=== PATIENT | female | born 1950 | race Caucasian/White ===

== ENCOUNTER 2024-11-28 13:39 | Outpatient (AMB) | payer MEDICARE, SELFPAY ==
--- NOTE | 2024-11-28 14:30 | HO.SPINEOV ---
Intake Visit Reasons: Low back pain. Intake Note: Ms. Truong is here today c/o low back pain radiating down left leg. MRI done @ [facility] (brought discs). 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 She developed low back pain radiating down her left leg. The symptoms became severe in June where the pain was associated with tingling and numbness. She tried physical therapy, chiropractic therapy, acupuncture and eventually injections. The 2nd injection in the beginning of October of 2024 alleviated the severe pain and tingling and numbness. However, the symptoms remain this a billing. She can not walk for any long distance or stand for any length of time before she has to sit down. PMH: Type 2 diabetes, hypertension Medications: Atorvastatin, glipizide, lisinopril, Toujeo insulin, multivitamins Allergies: NKDA Social history: Retired, nonsmoker Physical Exam: Pleasant female. Height 5'8 weight 150 lb. Straight leg raise is negative. No motor or sensory deficits. She can reproduce the left leg pain with standing in the office. Radiological Studies: MRI done at [facility] on 07/20/2024 shows multilevel lumbar degenerative scoliosis L2-3, L3-4 and L4-5 with severe L4 foraminal stenosis. Standing x-rays shows no signs of instability. There is a mild lumbar degenerative scoliosis Impression/Plan: This patient is suffering from unilateral neurogenic claudication with left leg pain due to multilevel spinal stenosis and severe left L4 foraminal stenosis. I offered her a left-sided decompression L2-L5 to address the symptom. She is tentatively scheduled for January 08, 2025. Of note, she was recently diagnosed with an asymptomatic aortic aneurysm of 3.9 cm. She is scheduled to undergo a next ultrasound in March. Thank you for allowing me to participate in your patients care. total time spent was 50 minutes in counseling ,coordination of plan, personal review of imaging, surgical decision making and subsequent plan Dain Becerril MD, PhD Spine Fellowship Trained Neurosurgeon Director, [facility] Coding Level of Care Code New Pt Level 4 (58087) Diagnoses Lumbar stenosis with neurogenic claudication M48.062
--- OUTSIDE RECORDS SUMMARY | 2024-11-28 14:34 | XMS_ITS | Clinical Summary ---
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 Name Role Phone Alex Shepard MD Primary Care Provider [phone] Surgical History Surgery Date Site/Laterality Comments OTHER SURGICAL HISTORY PROCEDURE: DENIES PREVIOUS SURGERY Medical History Medical History Date Comments Essential hypertension DX:Essent ial hypertension Hyperlipidemia DX:Hyperlipidemi a Diabetes mellitus type 2, co ntrolled, with complications (CMS/HCC V24, CMS/HCC V28) DX:Diabetes mellitus type 2, controlled, with complications ([facility]) Social History Tobacco Use Types Packs/Day Years Used Date Smoking Tobacco: Never Assessed Alcohol Use Standard Drinks/Week Comments Never 0 (1 standard drink = 0.6 oz pur e alcohol) Comments Unknown Sex and Gender Information Value Date Recorded Sex Assigned at Not on file Legal Sex Female 8:58 PM EST Gender Identity Not on file Sexual Orientation Not on file Obstetrics History Last Filed Vital Signs Vital Sign Reading Time Taken Comments Blood Pressure - - Pulse - - Temperature - - Respiratory Rate - - Oxygen Saturation - - Inhaled Oxygen Concentration - - Weight 68 kg (150 lb) 10/26/2021 2:15 PM EDT Height 172.7 cm (5' 8 ) 10/26/2021 2:15 PM EDT Body Mass Index 22.81 10/26/2021 2:15 PM EDT Plan of Treatment Health Maintenance Due Date Last Done Comments Breast Cancer Screening 1950 DTaP,Tdap,and Td Vaccines (1 - Tdap) 1971 Pneumococcal Vaccine: 50+ Ye ars (1 of 1 - PCV) 2002 Zoster Vaccines (1 of 2) 2002 Cholesterol Screening (Lipid Panel) 06/13/2022 Depression Screening 06/13/2022 Falls Risk Assessment 06/13/2022 Hepatitis C Screening 06/13/2022 Osteoporosis Screening (Bone Density Screening) 06/13/2022 Social Influencers of Health Screening 06/13/2022 COVID-19 Vaccine ( - 2023-2 5 season) 2024 Influenza Vaccine (Season Ended) 2025 Colorectal Cancer Screening: Colonoscopy 12/13/2026 12/13/2016 RSV Immunization Adult Patie nts (1 - 1-dose 75+ series) 2027 HIB Vaccines Aged Out No longer eligi ble based on patient's age to complete this topic HPV Vaccines Aged Out No longer eligi ble based on patient's age to complete this topic Hepatitis A Vaccines Aged Out No long er eligible based on patient's age to complete this topic Hepatitis B Vaccines Aged Out No long er eligible based on patient's age to complete this topic IPV Vaccines Aged Out No longer eligi ble based on patient's age to complete this topic MMR Vaccines Aged Out No longer eligi ble based on patient's age to complete this topic Meningococcal ACWY Vaccine Aged Out N o longer eligible based on patient's age to complete this topic Meningococcal B Vaccine Aged Out No l onger eligible based on patient's age to complete this topic RSV Immunization Patients Un catracho 20 months Aged Out No longer eligible b ased on patient's age to complete this topic Varicella Vaccines Aged Out No longer eligible based on patient's age to complete this topic Procedures Procedure Name Priority Date/Time Associated Diagnosis Comments EXTERNAL COLONOSCOPY REPORT Routine 12/13/2016 9:10 AM EDT from Last 3 Months or Most Recently Relevant to Health Maintenance Results * External Colonoscopy Report (12/13/2016 9:10 AM EDT) Anatomical Region Laterality Modality Endoscopy us Historical Provider GI~PROCEDURE ORDERABLES F inal Result from Last 3 Months or Most Recently Relevant to Health Maintenance Care Teams Milk Pickup Driver Relationship Specialty Start Date End Date Alex Shepard MD [address] [place] [address] Dr Doan, NANCY [address] PCP - General Internal Medicine 09/24/17
== END 2024-11-28 15:16 | disposition home or self-care (01) ==
LOC: HO.HNS 13:39
PROVIDERS: PCP Internal Medicine; Referring Provider Internal Medicine; Visit Provider Neurological Surgery
DX: M48.062 Spinal stenosis, lumbar region with neurogenic claudication (principal)
CPT/HCPCS: 99204

== ENCOUNTER → 2024-11-28 13:39 | Outpatient (BNVA) | payer MEDICARE, SELFPAY | PROVIDERS: PCP Internal Medicine; Visit Provider Neurological Surgery | DX: M48.062 Spinal stenosis, lumbar region with neurogenic claudication (principal) | CPT/HCPCS: 99202 ==

== ENCOUNTER → 2024-12-19 13:14 | Outpatient (BNV) | payer MEDICARE, SELFPAY | PROVIDERS: Admitting Provider Neurological Surgery; PCP Internal Medicine; Visit Provider Internal Medicine Cardiovascular Disease | DX: I51.7 Cardiomegaly (principal); Z01.810 Encounter for preprocedural cardiovascular examination | CPT/HCPCS: 93010 ==

== ENCOUNTER 2025-01-08 06:50 | Day surgery (SDC) | payer MEDICARE, SELFPAY ==
--- NOTE | 2024-12-19 | ECG_ITS ---
Test Reason : PREOP Blood Pressure : */* mmHG Vent. Rate : 83 BPM Atrial Rate : 83 BPM P-R Int : 138 ms QRS Dur : 84 ms QT Int : 384 ms P-R-T Axes : 51 56 62 degrees QTcB Int : 451 ms Normal sinus rhythm Possible Left atrial enlargement Borderline ECG No previous ECGs available Referred By: Savanah Valadez Electronically Signed By: Armand Monterroso
[2024-12-19 12:17] VITALS: BP 127/69; PULSE 92; RESP 16; O2SAT 96; BMI 24.2
[2025-01-08] VITALS (7 sets, daily range): BP systolic 105–143; BP diastolic 51–79; PULSE 85–100; RESP 16–18; TEMP 36.3–36.6; O2SAT 91–100; BMI 23.8
--- NOTE | ~2025-01-08 | FL_ITS ---
EXAMINATION: FL GUIDANCE ONLY HISTORY: l2-5 decompression COMPARISON: None available. TECHNIQUE: Fluoroscopy time: 7 seconds. Cumulative Dose: 4.5492 mGy. DAP: 1.1755 mGym2 Images: 1. FINDINGS: A single fluoroscopic spot film of the lumbar spine in the lateral projection demonstrates a probe directed toward the L5-S1 intervertebral disc space from a posterior approach. FL/FL guidance in OR IMPRESSION: Fluoroscopy during procedure. Please see procedure report for additional information. Electronically signed by: Jorden Javed MD 01/08/2025 03:24 PM EDT
[2025-01-08 07:25] LABS: Glucose, Whole Blood 208 mg/dL (60-115)
[2025-01-08] MEDS: Lactated Ringers 1,000 ML 100 ML IVCONT (07:29)
--- NOTE | 2025-01-08 09:42 | HO.ANESPROP2 ---
Documented by User: aSvanah Valadez NP 12/20/24 13:54 HPI - Anesthesia Eval Consult details Narrative: 74yo F for Left L2-3, L3-4, L4-5 Decompression, 01/08/25 No recent illness No CP/SOB AAA: 4.2cm - following [facility] vascular - Last eval 09/2024 with plan for 6 month repeat imaging and f/u. Asymptomatic, no futher PVD DM: FBS ~ 120 PMFSH Active Problems Active Problems: All Active Problems Lumbar stenosis with neurogenic claudication (Acute) Past Medical History Medical History (Updated 12/19/24 @ 12:14 by Maryuri Hill RN) Arthritis Back pain AAA (abdominal aortic aneurysm) Hyperlipidemia HTN (hypertension) Diabetes Family History Family history of problems with anesthesia: No Surgical History Surgical History H/O colonoscopy Hx of lithotripsy History of Problems with Anesthesia: No Social History Social History Are you a primary care aid to a significant other at home: No Do you presently have visiting nurse or other home services: No Patient Tobacco Use Status: Former Tobacco user Use of substances other than those prescribed or required for medical reasons: No Have you been hit, kicked, punched, or otherwise hurt by someone within the past year? If so, by whom?: No Are you DNR?: No Advance Directives: No Advance Directives Information Provided: Yes Advance Directives on File: No Patient : No : No Poor oral hygiene: Yes Meds Allergies Allergy/AdvReac Type Severity Reaction Status Date / Time No Known Allergies Allergy Verified 01/08/25 07:01 Home Medications ?Medication ?Instructions ?Recorded ?Confirmed ?Last Taken ?Type lisinopril 10 mg tablet 10 mg PO BEDTIME 11/28/24 01/08/25 01/07/25 History pen needle, diabetic 32 gauge x #1,200 ea 11/28/24 Unknown History ascorbic acid (vitamin C) 500 mg 500 mg PO DAILY 12/18/24 01/08/25 Unknown History chewable tablet atorvastatin 20 mg tablet 20 mg PO BEDTIME 12/18/24 01/08/25 Unknown History glipizide 10 mg tablet, extended 10 mg PO DAILY 12/18/24 01/08/25 01/07/25 History release 24 hr insulin glargine U-300 conc 300 20 unit subcut BID 12/18/24 01/08/25 01/07/25 19:00 History unit/mL (1.5 mL) subcutaneous pen 10 units (Toujeo SoloStar U-300 Insulin) multivitamin 1 tab PO DAILY 12/18/24 01/08/25 Unknown History sertraline 25 mg tablet 25 mg PO BEDTIME 12/18/24 01/08/25 Unknown History cranberry 500 mg capsule 500 mg PO DAILY 12/19/24 01/08/25 Unknown History Aleve 01/07/25 01/06/25 History Exam Height,Weight and Vital Signs: Height 5 ft 8 in Weight 72.121 kg Last Vital Signs Pulse 92 12/19/24 12:17 Resp 16 12/19/24 12:17 BP 127/69 12/19/24 12:17 Pulse Ox 96 12/19/24 12:17 O2 Del Method Room Air 12/19/24 12:17 Pertinent Lab Results Pertinent Lab Results: CMP 10/31/24 from outside facility [place] except elevated FBS/A1C (8.5%) CBC 10/31/24 from outside facility [place] Narrative Narrative: EKG 12/2024 Vent. Rate : 83 BPM Atrial Rate : 83 BPM P-R Int : 138 ms QRS Dur : 84 ms QT Int : 384 ms P-R-T Axes : 51 56 62 degrees QTcB Int : 451 ms Normal sinus rhythm Possible Left atrial enlargement Borderline ECG No previous ECGs available Aorta US 07/2024 Abdominal aortic aneurysm @ 4.2cm Ectatic common iliac arteries bilaterally Airway TM Dist: >3cm Neck ROM: Full Loose/Missing/Broken Teeth: No (Capped front top and bottom) Heart: RRR Lungs: CTAB Assessment and Plan Assessment Anesthesia Assessment: Anesthesia Plan Discussed and PAT Visit Final Anesthetic Review Family History of Problems with Anesthesia: No History of Problems with Anesthesia: No Documented by User: Tiesha Lindsay DO 01/08/25 09:44 [facility] Past Medical History Medical History (Updated 12/19/24 @ 12:14 by Maryuri Hill RN) Arthritis Back pain AAA (abdominal aortic aneurysm) Hyperlipidemia HTN (hypertension) Diabetes Family History Family history of problems with anesthesia: No Surgical History Surgical History H/O colonoscopy Hx of lithotripsy History of Problems with Anesthesia: No Social History Social History Are you a primary care aid to a significant other at home: No Do you presently have visiting nurse or other home services: No Patient Tobacco Use Status: Former Tobacco user Use of substances other than those prescribed or required for medical reasons: No Have you been hit, kicked, punched, or otherwise hurt by someone within the past year? If so, by whom?: No Are you DNR?: No Advance Directives: No Advance Directives Information Provided: Yes Advance Directives on File: No Patient : No : No Poor oral hygiene: Yes Meds Allergies Allergy/AdvReac Type Severity Reaction Status Date / Time No Known Allergies Allergy Verified 01/08/25 07:01 Home Medications ?Medication ?Instructions ?Recorded ?Confirmed ?Last Taken ?Type lisinopril 10 mg tablet 10 mg PO BEDTIME 11/28/24 01/08/25 01/07/25 History pen needle, diabetic 32 gauge x #1,200 ea 11/28/24 Unknown History ascorbic acid (vitamin C) 500 mg 500 mg PO DAILY 12/18/24 01/08/25 Unknown History chewable tablet atorvastatin 20 mg tablet 20 mg PO BEDTIME 12/18/24 01/08/25 Unknown History glipizide 10 mg tablet, extended 10 mg PO DAILY 12/18/24 01/08/25 01/07/25 History release 24 hr insulin glargine U-300 conc 300 20 unit subcut BID 12/18/24 01/08/25 01/07/25 19:00 History unit/mL (1.5 mL) subcutaneous pen 10 units (Toujeo SoloStar U-300 Insulin) multivitamin 1 tab PO DAILY 12/18/24 01/08/25 Unknown History sertraline 25 mg tablet 25 mg PO BEDTIME 12/18/24 01/08/25 Unknown History cranberry 500 mg capsule 500 mg PO DAILY 12/19/24 01/08/25 Unknown History Aleve 01/07/25 01/06/25 History Exam Exam Date and Time: 01/08/25 0940 Height,Weight and Vital Signs: Height 5 ft 8 in Weight 72.121 kg Last Vital Signs Pulse 92 12/19/24 12:17 Resp 16 12/19/24 12:17 BP 127/69 12/19/24 12:17 Pulse Ox 96 12/19/24 12:17 O2 Del Method Room Air 12/19/24 12:17 Vital Signs Pulse Rate 92 12/19/24 12:17 Respiratory Rate 16 12/19/24 12:17 Blood Pressure 127/69 12/19/24 12:17 Pulse Oximetry 96 12/19/24 12:17 Oxygen Delivery Method Room Air 12/19/24 12:17 Temperature 97.4 F 01/08/25 07:14 Pulse Rate 89 01/08/25 07:14 Respiratory Rate 16 01/08/25 07:14 Blood Pressure 143/79 H 01/08/25 07:14 Pulse Oximetry 96 01/08/25 07:14 Oxygen Delivery Method Room Air 01/08/25 07:14 Airway Mallampati Class: II TM Dist: >3cm Neck ROM: Full Loose/Missing/Broken Teeth: No (Capped front top and bottom) Heart: S1S2 Assessment and Plan Assessment Anesthesia Assessment: Anesthesia Plan Discussed and Chart Reviewed Final Anesthetic Review Family History of Problems with Anesthesia: No History of Problems with Anesthesia: No NPO: Yes ASA Class: II Final Preanesthetic Review: No Changes in Pt Med Stat, Meds/Allgs Chart Reviewed, Consent Obtained/Reviewed and Anes Risks/Benef Reviewed Patient Risk: Low Procedure Risk: Intermediate Anesthetic Plan Anesthetic Plan: GA and Agree w/ Assess. and Plan Disposition: Standard PACU
--- NOTE | 2025-01-08 09:50 | PC.NURSE ---
Patient last took PO Aleve [address] Becerril and Jose Luis Patricio made aware. No new orders at this time.
--- NOTE | 2025-01-08 09:52 | MHC.SHP ---
Pre-Procedural Eval Section A - 24 Hr Update-Section A only Date of Service: 01/08/25 The patient is an INPATIENT: No Changes since office visit: No Cold of Flu in the past 2 weeks, No New Medical Problems, No Changes in Medication and No Patient answered all questions The patient has been examined within 24 hours of the surgical procedure. The History & Physical has been completed within 30 days and I have reviewed it.: No Section B - Complete if H&P > 30 days Chief Complaint: Spondylolisthesis, lumbar region,Arthrodesis Allergies: Allergies Allergy/AdvReac Type Severity Reaction Status Date / Time No Known Allergies Allergy Verified 01/08/25 07:01 Review of Systems Sugical H&P ROS: Negative: Constitution, Cardiovascular, Respiratory, Neurological, Psychiatric, Hem-Onc, Allergic/Immunologic, Gastrointestinal, Genitourinary, Musculoskeletal, Integumentary, Endocrine and Eyes/Ears/Nose/Throat Exam Surgical H&P Exam: Normal: HEENT, Normal: Heart, Normal: Lungs, Normal: Extremities, Normal: Abdomen, Normal: Skin and Normal: Neurological (awake, alert,oriented x 3) Plan Diagnosis/Plan: Unchanged left L2-3. L3-4 and L4-5 decompression Time Spent With Patient Time: Total time managing care of this patient today __6__ minutes.
--- NOTE | 2025-01-08 09:54 | P.DS_ITS ---
DS: Providers Provider Date of Service: 01/08/25 Date of discharge: 01/08/25 Primary care physician: Jeovanny Saenz MD Admitting clinician: Dain Becerril DS: Diagnosis Discharge Diagnosis (1) Lumbar stenosis with neurogenic claudication: Status: Acute DS: Summary Time Attestation Discharge Coordination Time (in mins): 4 Quality: Safe Use of Opioids Does Pt have an Active Cancer Diagnosis on the Problem List?: No Quality: Stroke Does the patient have a stroke diagnosis?: No Physical Exam Vital Signs: Vital Signs: Last Vital Signs Temp 97.4 F 01/08/25 07:14 Pulse 89 01/08/25 07:14 Resp 16 01/08/25 07:14 BP 143/79 H 01/08/25 07:14 Pulse Ox 96 01/08/25 07:14 O2 Del Method Room Air 01/08/25 07:14 BMI result Body Mass Index 23.8 DS: Data Data Completed and Pending Labs on day of discharge: Laboratory Results - last 24 hr 01/08/25 07:11 POC Glucose 208 H Discharge Plan Discharge Patient Disposition: Home, Self-Care Referrals: Jeovanny Saenz MD [Primary Care Provider, Internal Medicine] - 1 Week Discharge Medications: New oxycodone 5 mg tablet 5 mg PO Q4H PRN (Reason: pain) Qty: 20 0RF Rx Instructions: Partial Fill upon patient request. docusate sodium [Colace] 100 mg capsule 100 mg PO BID Qty: 20 0RF Continued multivitamin Tablet 1 tab PO DAILY atorvastatin 20 mg tablet 20 mg PO BEDTIME glipizide 10 mg tablet extended release 24hr 10 mg PO DAILY ascorbic acid (vitamin C) 500 mg Tablet,Chewable 500 mg PO DAILY sertraline 25 mg tablet 25 mg PO BEDTIME insulin glargine U-300 conc [Toujeo SoloStar U-300 Insulin] 300 unit/mL (1.5 mL) insulin pen 20 unit subcut BID cranberry 500 mg Capsule 500 mg PO DAILY Rx Instructions: administer with meals Aleve lisinopril 10 mg tablet 10 mg PO BEDTIME (DME) pen needle, diabetic 32 gauge x 5/32 needle See Rx Instructions .ROUTE BID Qty: 1200 Rx Instructions: As directed Discharge Orders: Discharge Order (Routine); Ordered 01/08/25 Ordered By: Jose Luis T James Diet: Advance to usual diet Activity on Discharge: As tolerated Activity Restrictions/Additional Instructions: After your spinal surgery we ask you to observe the following restrictio ns/guidelines: Activity: It is normal to feel some discomfort as you increase your activity, but that will improve with time. We ask you avoid heavy lifting or acitivities that cause pain. As a general rule, 8lbs is a safe limit for lifting right after surgery. Walk as much as you feel comfortable but not to exhaustion. You will feel extra tired the first few days after surgery. Stay well hydrated. It is OK to walk up and down stairs You may return to driving when you are off narcotics (such as vicodin, oxycodone, dilaudid, etc), and you are back to normal functional capacity. If you have any concerns please check with office before driving. Return to work is specific to each patient and each surgery, so please speak with your doctor/PA at first follow up. Please bring paperwork such as FMLA at that time if you need it filled out. Medications: For optimum pain control, it is best to start with a combination of 500 mg of Tylenol every 4 hours with 600 mg of Motrin every 8 hours, and use narcotics as needed in between for breakthrough pain. We will give you a short supply of narcotics after surgery (usually one weeks worth). If you need more please call the office but do not use more than prescribed. You will need to give our office 48 hours notice if you need narcotics refilled and we do not fill narcotics on weekends or evenings. If you are on a narcotic, it is a good idea to take a stool softener such as colace or senna to avoid constipation If you take blood thinner such as aspirin, Plavix, Coumadin, Effient, Eliquis etc for conditions such as Afib, DVT, Pulmonary embolus, coronary disease, stents etc please speak with your surgeon about specific details as to when you can resume these medications. You can resume NSAIDs on post op day 1 (eg: Motrin, Naproxen, etc). Follow up: Please call the office, , after surgery to arrange a 3 week follow up for wound check. Wound Care: You may remove your dressing on the first day after surgery. ?You may ?leave open to air. Please do not remove the steri strips underneath. they will fall off on their own in one week. IT IS NORMAL FOR THE WOUND TO OOZE OR BE BLOODY FOR A FEW DAYS AFTER SURGERY. ?IF THIS HAPPENS JUST PLACE NEW DRESSING OVER IT TO AVOID STAINING CLOTHES. You may shower on post op day # 1 We ask that you do not let the water soak the wound. If it does get wet, just towel dry lightly. Please do not scrub your incision or place any type of chemical/ointment on the wound. No tub baths, pools or jacuzzis for one month. If you have any leaking or redness from your wound, or fevers, please call office Print Language: Moldovan
--- NOTE | 2025-01-08 11:35 | P.OP_ITS ---
Operative Note Operative Note Date of Service: 01/08/25 Narrative: Preoperative Diagnosis: L2-3, L3-4 and L4-5 spinal stenosis/lateral recess stenosis/neural foraminal stenosis Operation: Left L2-3, L3-4 and L4-5 Laminotomy, Partial facetectomy and foraminotomy with use of microscope Consent Informed Consent was obtained for this operation. I have explained the nature, purpose and benefits of the operation. I have discussed the risks and benefit of the operation including possible complications or adverse events with patient/family. Alternative(s) were discussed with the patient with their relative benefits and risks as well as the consequences of not accepting the operation were included in obtaining consent. Surgeon: JEREMIE SANTORO MD, PHD Procedure Assisted By: Jose Luis Hercules Description of Procedure This 74-year-old female suffering from unilateral neurogenic claudication due to multilevel lumbar stenosis from L2-L5. The patient was offered a decompression of these levels. The procedure complications were explained. The patient was consented. The patient was brought to the operating room and endotracheally intubated. The patient was turned in prone position on the Rodolfo frame. Prep and drape was done followed by timeout. The Physician facilities maintenance assistant provided access. A mid lumbar incision was made followed by release of the paravertebral muscle on the left side to expose the L2, L3, L4 and L5 laminae and facet joints. An intraoperative x-ray was obtained to confirm the correct level. The microscope was brought in. I took over the procedure. The high-speed drill was used to do a L2-3 laminotomy until flavum ligament was reached. A #2 Kerrison was used to expand the laminotomy near flush to the pedicles and to include a partial facetectomy. The flavum ligament was opened and resected with a #3 Kerrison to decompress the underlying thecal sac. The flavum ligament was removed to decompress the lateral recess and the exiting L3 nerve root. A long nerve hook could be easily passed along the medial side of the pedicle as a sign of adequate decompression. Then attention was turned to the L3-4 level where a similar procedure was performed. This level had more significant stenosis than the L2-3 level. Hypertrophied flavum ligament was resected to expose the underlying thecal sac and L4 nerve root. The L4 nerve root was decompressed in the lateral recess. Finally the L4-5 region was addressed. An L4-5 hemilaminotomy was done with a high-speed drill. The underlying flavum ligament is over the resected. The L5 nerve root was decompressed in the lateral recess. The microscope was removed. Hemostasis was done. The physician facilities maintenance assistant close the incision in 2 layers. Steri-Strips were used to approximate incision. An OpSite with Tegaderm was used to cover the incision. All sponge needle counts were correct. Patient was extubated and transported in stable is to recovery room. Anesthesia: General Estimated Blood Loss (ml): 30 mL Complications: None Duration of Surgery: 95 Minutes Postoperative Plan: Discharge to home
== END 2025-01-08 13:29 | disposition home or self-care (01) ==
PROVIDERS: PCP Internal Medicine; Visit Provider Neurological Surgery
PROC: (CPT 63047; principal; 2025-01-08 09:20)
DX: M48.062 Spinal stenosis, lumbar region with neurogenic claudication (principal); M43.16 Spondylolisthesis, lumbar region; M41.56 Other secondary scoliosis, lumbar region; R26.2 Difficulty in walking, not elsewhere classified; Z98.1 Arthrodesis status; I10 Essential (primary) hypertension; E11.9 Type 2 diabetes mellitus without complications; Z79.4 Long term (current) use of insulin; Z79.84 Long term (current) use of oral hypoglycemic drugs; Z79.899 Other long term (current) drug therapy
CPT/HCPCS: 63047; 63048 ×2; 82947; 93005; J0131; J0690; J1100; J1885; J2003; J2250; J2371; J2405; J2704; J3010

== ENCOUNTER → 2025-01-08 06:50 | Outpatient (BNV) | payer MEDICARE, SELFPAY | PROVIDERS: PCP Internal Medicine; Visit Provider Neurological Surgery | DX: M48.062 Spinal stenosis, lumbar region with neurogenic claudication (principal) | CPT/HCPCS: 63047; 63048; 99499 ==

== ENCOUNTER 2025-01-28 14:44 | Outpatient (AMB) | payer MEDICARE, SELFPAY ==
--- NOTE | 2025-01-28 15:05 | HO.SPINEOV ---
Intake Visit Reasons: 1st post op Intake Note: Ms. Truong is here today for her 1st post op. Textile Converter Required: No Allergies No Known Allergies Allergy (Verified 01/08/25 07:01) Assessment & Plan Assessment & Plan (1) Lumbar stenosis with neurogenic claudication: Code(s): M48.062 - Spinal stenosis, lumbar region with neurogenic claudication Category: Medical Plan Mrs Truong is here in follow-up. She is 3 weeks out from her L2-5 decompression on the left side. She has seen relief from some of the leg pain but she is still getting sciatic discomfort in her buttock and down her hamstring. It is getting better though. It is not requiring her to take much in the way of medication. Her wound is healed up beautifully. She is going on a trip to see her son in [facility] soon so she is looking forward to spending some time walking and hopefully can do well when she is visiting. She will come back and see us in 6-8 weeks when she is back from her trip and we can re-evaluate just to make sure that she is continuing to improve. Jose Luis Becerril MD, PhD [facility] Coding Level of Care Code Global (67711) Diagnoses Lumbar stenosis with neurogenic claudication M48.062
--- OUTSIDE RECORDS SUMMARY | 2025-01-28 15:16 | XMS_ITS | Clinical Summary ---
Author Organization [facility] Address [address] [place] [address] Care Team Providers Care Development Disability Specialist Name Role Phone Alex Shepard MD Primary Care Provider [phone] Surgical History Surgery Date Site/Laterality Comments OTHER SURGICAL HISTORY PROCEDURE: DENIES PREVIOUS SURGERY Medical History Medical History Date Comments Essential hypertension DX:Essent ial hypertension Hyperlipidemia DX:Hyperlipidemi a Diabetes mellitus type 2, co ntrolled, with complications (CMS/HCC V24, CMS/HCC V28) DX:Diabetes mellitus type 2, controlled, with complications ([facility]) Social History Tobacco Use Types Packs/Day Years [...] 2) 2002 Cholesterol Screening (Lipid Panel) 06/13/2022 Falls Risk Assessment 06/13/2022 Hepatitis C Screening 06/13/2022 Osteoporosis Screening (Bone Density Screening) 06/13/2022 Social Influencers of Health Screening 06/13/2022 COVID-19 Vaccine (1 - 2023-2 5 season) 2024 Depression Screening 07/04/2024 Influenza Vaccine (#1) 2025 Colorectal Cancer Screening: Colonoscopy 12/13/2026 12/13/2016 [...] Recently Relevant to Health Maintenance Care Teams Development Disability Specialist Relationship Specialty Start Date End Date Alex Shepard MD [address] [place] [address] Dr Doan, [place]ANCY [address] PCP - General Internal Medicine 09/24/17
--- OUTSIDE RECORDS SUMMARY | 2025-01-28 15:16 | XMS_ITS | Encounter Summary ---
Author Organization [facility] Address [address] [place] [address] Phone Care Team Providers Care Religion Instructor Name Role Phone Jeovanny Saenz MD Primary Care Provider [phone] Encounter Details Date Type Department Care Team (Late st Contact Info) Description 07/11/2024 Procedure Pass [facility], [address] [address] Social History Tobacco Use Types Packs/Day Years Used Date Smoking Tobacco: Former Cigarettes - 2017 Smokeless Tobacco: Never Comments:Smoked 6-7 cigarett es a day from 1999 to 2007. Alcohol Use Standard Drinks/Week Comments Yes 0 (1 standard drink = 0.6 oz pure alcohol) 4 drinks a year if that, very rare Education Answer Date Recorded Are you interested in more education? Not on benjamin e 10/30/2022 Are you concerned about learning? Not on file 10/30/2022 No 10/30/2022 No 10/30/2022 Digital Access Answer Date Recorded No 11/27/2022 No 11/27/2022 Reliable internet access at home? Not on file 11/27/2022 Device with a working camera? Not on file Comments Unknown Sex and Gender Information Value Date Recorded Sex Assigned at Female 03/03/2022 12:23 PM EDT Legal Sex Female 9:37 AM EDT Gender Identity Female 03/03/2022 12:23 PM EDT Sexual Orientation Asexual 03/03/2022 12 :23 PM EDT documented as of this encounter Plan of Treatment Upcoming Encounters Date Type Department Care Team (Late st Contact Info) Description 05/14/2025 11:00 AM EST Office Visit [facility] [address] [place] [address] Rhianna Kee CNP [address] [facility], 1st [place] [address] [email or web address] 05/24/2025 11:00 AM EST Office Visit [facility] [address] [place] [address] Jeovanny Saenz MD [address] [place] [address] [email or web address] documented as of this encounter Visit Diagnoses Not on filedocumented in this encounter Additional Health Concerns Assessment Noted Time PHQ-2 Depression Total Score: 0 04/24/20 24 10:48 AM EDT documented as of this encounter Care Teams Religion Instructor Relationship Specialty Start Date End Date Jeovanny Saenz MD [address] [place] [address] [email or web address] PCP - General Internal Medicine 03/08/23 documented as of this encounter Additional Source Comments The information contained in this document represents components of the legal health record. It is not the complete legal health record.[facility]
== END 2025-01-28 15:39 | disposition home or self-care (01) ==
LOC: HO.HNS 14:44
PROVIDERS: PCP Internal Medicine; Visit Provider Physician Assistant
DX: M48.062 Spinal stenosis, lumbar region with neurogenic claudication (principal)
CPT/HCPCS: 99024

== ENCOUNTER → 2025-01-28 14:44 | Outpatient (BNVA) | payer MEDICARE, SELFPAY | PROVIDERS: PCP Internal Medicine; Visit Provider Physician Assistant | DX: M48.062 Spinal stenosis, lumbar region with neurogenic claudication (principal) | CPT/HCPCS: 99212 ==

== ENCOUNTER 2025-03-18 11:09 | Outpatient (AMB) | payer MEDICARE, SELFPAY ==
--- NOTE | 2025-03-18 11:34 | A.SPINEOV_ITS ---
Intake Visit Reasons: 2nd post op Intake Note: Ms. Truong is here today for her 2nd post op. Tunnel Heading Inspector Required: No Allergies No Known Allergies Allergy (Verified 03/18/25 11:35) Assessment & Plan Assessment & Plan (1) Lumbar stenosis with neurogenic claudication: Code(s): M48.062 - Spinal stenosis, lumbar region with neurogenic claudication Category: Medical Plan Mrs Truong is here in follow up today. Unfortunately she continues to have the same pain now that she had before surgery. It starts in the middle of her back radiates down the left side over the sacroiliac area into the buttock and down the hamstring. It is very frustrating because she is having a very hard time standing and walking. I gave her a Medrol Dosepak to get through a trip to [facility] and she was okay while she was on the steroid but unfortunately things are right back to where she started. On exam her incision is well healed, her gait is antalgic but her strength is normal. She has been on Motrin and Tylenol and muscle relaxers. She has obviously been through extensive conservative treatment leading up to this. I am going to get a set of upright flexion- extension x-rays and to a postoperative MRI with and without susana 0 to see if there is some structural component here we are missing. I will see her back in the office with Dr. Becerril after it is completed. Jose Luis Becerril MD, PhD [facility] Orders: Orders MR lumbar spine wo/w con Today M48.062 - Spinal stenosis, lumbar region with neurogenic claudication XR lumbar spine 4V min Today M48.062 - Spinal stenosis, lumbar region with neurogenic claudication Coding Level of Care Code Global (21051) Diagnoses Lumbar stenosis with neurogenic claudication M48.062
--- OUTSIDE RECORDS SUMMARY | 2025-03-18 14:57 | XMS_ITS | Encounter Summary ---
Author Organization [facility] Address [address] [place] [address] Phone Care Team Providers Care Chief Cardiopulmonary Technologist Name Role Phone Jeovanny Saenz MD Primary Care Provider [phone] Encounter Details Date Type Department Care Team (Late st Contact Info) Description 07/11/2024 Procedure Pass [facility], [address] [address] Social History Tobacco Use Types Packs/Day Years [...] Description 05/14/2025 11:00 AM EST Office Visit [facility] [address] [place] [address] Rhianna Kee CNP 22 [facility], 1st [place] [address] [email or web address] 05/24/2025 11:00 AM EST Office Visit [facility] Internal Medicine [address] [place] [address] Jeovanny Saenz MD [address] [place] [address] [email or web address] documented as of this encounter Visit Diagnoses Not on filedocumented in this encounter Additional Health Concerns Assessment Noted Time PHQ-2 Depression Total Score: 0 04/24/20 24 10:48 AM EDT documented as of this encounter Care Teams Chief Cardiopulmonary Technologist Relationship Specialty Start Date End Date Jeovanny Seanz MD [address] [place] [address] [email or web address] PCP - General Internal Medicine 03/08/23 documented as of this encounter Additional Source Comments The information contained in this document represents components of the legal health record. It is not the complete legal health record.[facility]
--- OUTSIDE RECORDS SUMMARY | 2025-03-18 14:57 | XMS_ITS | Clinical Summary ---
Author Organization [facility] Address [address] [place] [address] Care Team Providers Care Director Of Medical Staff Services Name Role Phone Alex Shepard MD Primary Care Provider [phone] Surgical History Surgery Date Site/Laterality Comments OTHER SURGICAL HISTORY PROCEDURE: DENIES PREVIOUS SURGERY Medical History Medical History Date Comments Essential hypertension DX:Essent ial hypertension Hyperlipidemia DX:Hyperlipidemi a Diabetes mellitus type 2, co ntrolled, with complications (CMS/HCC V24, CMS/HCC V28) DX:Diabetes mellitus type 2, controlled, with complications ([facility]) Social History Tobacco Use Types Packs/Day Years [...] 2002 Zoster Vaccines (1 of 2) 2002 Falls Risk Assessment 06/13/2022 Hepatitis C Screening 06/13/2022 Osteoporosis Screening (Bone Density Screening) 06/13/2022 Social Influencers of Health Screening 06/13/2022 Depression Screening 07/04/2024 COVID-19 Vaccine (1 - 2023-2 5 season) 2025 Influenza Vaccine (#1) 2025 Colorectal Cancer Screening: [...] Recently Relevant to Health Maintenance Care Teams Director Of Medical Staff Services Relationship Specialty Start Date End Date Alex Shepard MD [address] [place] [address] Dr Doan, [place]Y [address] PCP - General Internal Medicine 09/24/17
--- OUTSIDE RECORDS SUMMARY | 2025-03-18 14:57 | XMS_ITS | Encounter Summary ---
Author Organization [facility] Address [address] [place] [address] Phone Care Team Providers Care Concrete Rod Buster Name Role Phone Jeovanny Saenz MD Primary Care Provider [phone] Encounter Details Date Type Department Care Team (Late st Contact Info) Description 03/11/2025 Orders Only [facility] Internal Medicine [address] [place] [address] Provider, MD José Miguel [address] [place] [address] Social History Tobacco Use Types Packs/Day Years [...] with a working camera? Not on file Intimate Partner Violence Answer Date R ecorded Denied Basic Needs Not on file 11/05/2024 In the past 12 months have y ou been in a relationship with a person who hurts, threatens, or tries to control you? No 11/05/2024 Worried food would run out Not on file 11/05 In the past 12 months have y ou been in a relationship with a person who hurts, threatens, or tries to control you? No 11/05/2024 Comments Unknown Sex and Gender Information Value [...] Description 05/14/2025 11:00 AM EST Office Visit [facility] [address] [place] [address] Rhianna Kee CNP [address] [place] [address], [address] [place] [address] 05/24/2025 11:00 AM EST Office Visit [facility] Internal Medicine [address] [place] [address] Jeovanny Saenz MD [address] [place] [address] documented as of this encounter Procedures Procedure Name Priority Date/Time Associated Diagnosis Comments DIABETES EYE EXAM FOR RESULT ENTRY ONLY Routine 03/11/2025 2:28 PM EDT documented in this encounter Results * DIABETES EYE EXAM FOR RESULT ENTRY ONLY (03/11/2025 2:28 PM EDT) us Historical Provider HEALTH MAINTENANCE Final Result documented in this encounter Visit Diagnoses Not on filedocumented in this encounter Additional Health Concerns Assessment Noted Time PHQ-2 Depression Total Score: 0 11/06/19 25 10:59 AM EDT documented as of this encounter Care Teams Concrete Rod Buster Relationship Specialty Start Date End Date Jeovanny Saenz MD [address] [place] [address] [email or web address] PCP - General Internal Medicine 03/08/23 documented as of this encounter Additional Source Comments The information contained in this document represents components of the legal health record. It is not the complete legal health record.[facility]
--- OUTSIDE RECORDS SUMMARY | 2025-03-18 14:58 | XMS_ITS | Clinical Summary ---
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 Active ascorbic acid, vitamin C, (VITAMIN C) 500 mg Chew Take 500 mg by mouth daily. Active lisinopril (PRINIVIL,ZESTRI L) 10 MG tabletIndication s:Benign essential hypertension take 1 tablet by mouth every day 90 tablet 3 4 Active atorvastatin (LIPITOR) 20 MG tabletIndication s:Hyperlipidemia take 1 tablet by mouth every day 90 tablet 3 4 Active sertraline (ZOLOFT) 25 MG tablet TAKE 1 TABLET (25 MG TOTAL) BY MOUTH DAILY. 90 tablet 3 4 Active diclofenac sodium (VOLTAREN) 75 MG EC tabletIndication s:Acute bilateral low back pain without sciatica TAKE 1 TABLET BY MOUTH TWICE A DAY 20 tablet 5 Active Additional Information Patient not taking.Reported on 01/21/2025 cholecalciferol, vitamin D3, (VITAMIN D3 ORAL) Take 1 tablet by mouth daily. Active BD LUCIEN 2ND GEN PEN NEEDLE 32 gauge x NdleIndications: Type 2 diabetes mellitus with hyperglycemia, without long-term current use of insulin Inject 1 each under the skin every morning. Use as directed to administer insulin 90 each 3 5 Active glipiZIDE (GLUCOTROL XL) 10 MG 24 hr tabletIndication s:Type 2 diabetes mellitus with hyperglycemia, without long-term current use of insulin Take 1 tablet (10 mg total) by mouth every morning. 90 tablet 3 5 Active TOUJEO SOLOSTAR U-300 INSULIN 300 unit/mL (1.5 mL) injection penIndications:T ype 2 diabetes mellitus with hyperglycemia, without long-term current use of insulin Inject 40 Units under the skin daily. 12 mL 3 5 Active calcitonin, salmon, (MIACALCIN) 200 unit/actuation nasal spray 1 spray by Nasal route nightly at bedtime. 5 Active naproxen (NAPROSYN) 500 MG tablet Take 1 tablet (500 mg total) by mouth 2 (two) times a day with meals. 60 tablet 1 5 Active Active Problems Problem Noted Date Diagnosed Date Acute bilateral low back pain without sciatica 0 07/11/2024 Assessment & Plan (07/11/2024 4:17 PM EST): Patient with low back pain who initially had left buttock pain and received a course of prednisone which improved but then developed right sided buttock pain and now has pain and weakness in her thighs. She was placed on another course of prednisone which did not provide as much relief. She has undergone lumbar x-rays which showed some arthritis. However she is noted to have weakness on her physical exam today and therefore she presents today secondary to increasing pain -I will give her a prednisone 40 mg daily x 5 days patient will need to increase water intake and eat with the medication. She was also advised to take Prilosec to coat her stomach. Patient advised to hold Aleve. -MRI lumbar spine patient will have this done at [facility] [facility] -Patient has done physical therapy in the past as this has been an ongoing now progressive issue which has not worked for her. Lumbar radiculopathy 06/14/2024 Assessment & Plan (06/14/2024 7:37 PM EST): Patient with noted chronic low back pain with intermittent flareups. Patient states that she started with some low back pain with some radiation of pain down the posterior left leg to the back of the knee. Patient mentions that this has been since her appointment in April where she was given naproxen. She has tried the naproxen as well as Aleve but this has not provided any relief On physical exam she is noted to have 5 out of 5 strength in her lower extremities, sensation is intact, and negative SLR bilaterally. -I will obtain a lumbar x-ray -We did discuss going back to physical therapy however patient states that it was quite painful. -I will start her on a course of prednisone 40 mg x 5 days. Patient is to eat with this medication. -I advised the patient if this does not improve her symptoms then we will need to move forward with a lumbar MRI and place her on 100 mg p.o. twice daily of gabapentin Vitamin D deficiency 08/06/2022 Assessment & Plan (08/06/2022 10:28 AM EST): Unclear if stable, check lab Immunization declined 08/06/2022 Assessment & Plan (08/06/2022 10:28 AM EST): Patient verbalized understanding of risks Encounter for screening mamm ogram for malignant neoplasm of breast 08/06/2022 Assessment & Plan (08/06/2022 10:27 AM EST): mammo ordered Need for hepatitis C screening test 12/24/2021 Assessment & Plan (12/24/2021 10:35 AM EDT): Ordered Patient agrees Type 2 diabetes mellitus wit h hyperglycemia, without long-term current use of insulin 12/24/2021 Overview (01/12/2024): Had DM eye exam 01/02/[address] Magdaleno. No retinopathy, + has cataracts- f/u 1 yr advised Assessment & Plan (01/21/2025 2:33 PM EDT): - Blood glucose levels have been quite variable since her back surgery on 01/08/2025. - Currently taking glipizide 10 mg in the morning and Toujeo 20 units twice a day. No changes to her medication regimen were made at this time per patient preference, we briefly discussed alternatives like GLP1 or even DPP4, but Carey wishes to not make any changes at this time - Discussed the potential long-term complications of diabetes, including increased risk of heart attacks, strokes, neuropathy, retinopathy, and nephropathy. Advised to reduce carbohydrate intake slightly to help manage blood glucose levels. Assessment & Plan (10/16/2024 10:11 AM EDT): Carey continues with using CGM consistently, a tool that helps to bring awareness to non-medication related factors that impact the blood sugar in realtime We discussed other medications that may help with prandial elevations as these can be significant at times As recalled, Carey is not able to tolerate metformin or Farxiga in the past. A GLP-1 agonist would be robust in helping with prandial elevations. Could also consider DPP-4 inhibitors, though not as robust as a GLP-1 agonist. Briefly discussed current Toujeo dose and action of sulfonylureas. Advised that Toujeo dosage could be taken all at once to aid with adherence and recommended decrease in dosage if overnight hypoglycemia starts up again Continues on DURAN, encouraged taking this 30 minutes ahead of meal in the morning to help reduce significant elevation Could consider basal insulin/GLP-1 combo that could be beneficial Carey would like to hold off on medication adjustments right now, she instead would like to work on taking glipizide in advance to the morning meal and alter the carb amount of the morning meal Has declined diabetes education in the past Encouraged efforts at balanced, mindful eating and making slow, gradual lifestyle adjustments Encouraged efforts at increasing physical activity as tolerated Advised to contact office with any questions or concerns. We will follow up in 3 months Assessment & Plan (07/06/2023 10:58 AM EST): Carey continues with using CGM consistently, a tool that helps to bring awareness to non-medication related factors that impact the blood sugar in realtime We discussed other medications that may help with prandial elevations as these can be significant at times As recalled, Carey is not able to tolerate metformin or Farxiga in the past. A GLP-1 agonist would be robust in helping with prandial elevations. Could also consider DPP-4 inhibitors, though not as robust as a GLP-1 agonist. Briefly discussed current Toujeo dose and action of sulfonylureas. Advised that Toujeo dosage could be taken all at once to aid with adherence and recommended decrease in dosage if overnight hypoglycemia starts up again Continues on DURAN, encouraged taking this 30 minutes ahead of meal in the morning to help reduce significant elevation Could consider basal insulin/GLP-1 combo that could be beneficial Carey would like to hold off on medication adjustments right now Has declined diabetes education Encouraged efforts at balanced, mindful eating and making slow, gradual lifestyle adjustments Encouraged efforts at increasing physical activity as tolerated Advised to contact office with any questions or concerns. We will follow up in February Assessment & Plan (02/21/2023 1:46 PM EDT): Carey continues with using CGM consistently, a tool that helps to bring awareness to non-medication related factors that impact the blood sugar in realtime We discussed other medications that may help with prandial elevations as these are quite significant As recalled, Carey is not able to tolerate metformin or Farxiga in the past. A GLP-1 agonist would be robust in helping with prandial elevations. Could also consider DPP-4 inhibitors, though not as robust as a GLP-1 agonist. Briefly discussed current Toujeo dose and action of sulfonylureas. Advised that Toujeo dosage could be taken all at once to aid with adherence Continues on DURAN Discussed basal insulin/GLP-1 combo that could be beneficial Carey would like to hold off on medication adjustments right now Has declined diabetes education in the past Encouraged efforts at balanced, mindful eating and making slow, gradual lifestyle adjustments Encouraged efforts at increasing physical activity as tolerated Advised to contact office with any questions or concerns. We will follow up in 3 months Assessment & Plan (11/08/2022 1:06 PM EDT): Carey continues with using CGM consistently, a tool that helps to bring awareness to non-medication related factors that impact the blood sugar in realtime We discussed other medications that may help with prandial elevations as these are quite significant As recalled, Carey is not able to tolerate metformin or Farxiga in the past. A GLP-1 agonist would be robust in helping with prandial elevations. Could also consider DPP-4 inhibitors, though not as robust as a GLP-1 agonist. Briefly discussed current Toujeo dose and action of sulfonylureas. Advised that Toujeo dosage could be taken all at once to aid with adherence Carey has reduced glipizide since last visit, didn't feel blood sugar patterns were different being on a reduced dose, we compared today's download to last visit and she is running a bit higher overall Recommend increasing DURAN or trying an additional DM medication that can help with prandial elevations Discussed basal insulin/GLP-1 combo that could be beneficial Carey would like to hold off on medication adjustments right now Offered visit with diabetes education to aid in lifestyle modifications for tighter glycemic control, this was declined Encouraged efforts at balanced, mindful eating and making slow, gradual lifestyle adjustments Encouraged efforts at increasing physical activity as tolerated Advised to contact office with any questions or concerns. We will follow up in 3 months Assessment & Plan (08/06/2022 10:28 AM EST): Much improved since going to DM center I am deferring DM2 lab orders to them Assessment & Plan (07/19/2022 4:00 PM EST): Carey continues with improving control, which likely has to do with CGM use We discussed other medications that may help with prandial elevations As recalled, Carey is not able to tolerate metformin or Farxiga in the past. A GLP-1 agonist would be robust in helping with prandial elevations. Could also consider DPP-4 inhibitors, though not as robust as a GLP-1 agonist. Briefly discussed current Lantus dose and action of sulfonylureas. Carey questions if glipizide is working. We discussed experimenting with decreasing dose to 10 mg and watching CGM patterns to see if BGs run higher. I will check in with Carey in 2 weeks to review CGM data as well as sulfonylurea dosing We discussed that if glipizide dose is reduced, more pronounced hyperglycemia will likely be noted and that 20 mg dose should be resumed If Carey would like to remain on reduced glipizide dose then another agent would likely be needed Carey would like to hold off on any further adjustments today and would like to revisit download and progress at next visit Encouraged efforts at balanced, mindful eating and making slow, gradual lifestyle adjustments Encouraged efforts at increasing physical activity as tolerated Advised to contact office with any questions or concerns. We will follow up in 3 months Assessment & Plan (04/15/2022 12:35 PM EDT): Improving control, especially during the time that Carey wore the CGM Still in process of getting Veronica 2 for Carey which will likely immensely improve control given increased awareness of blood sugars and factors that affect blood sugars Carey feels that the time wearing CGM was invaluable and is looking forward to continue using the Veronica As recalled, Carey is not able to tolerate metformin or Farxiga in the past. A GLP-1 agonist would be robust in helping with prandial elevations. Could also consider DPP-4 inhibitors, though not as robust as a GLP-1 agonist. Briefly discussed current Lantus dose and action of sulfonylureas. Encouraged efforts at balanced, mindful eating and making slow, gradual lifestyle adjustments Encouraged efforts at increasing physical activity as tolerated Advised to contact office with any questions or concerns. We will follow up in 3 months Assessment & Plan (03/04/2022 1:53 PM EDT): Recent worsening control on review of recent A1c (9.7% in December compared to 7.5% in June). With limited glycemic data, difficult to assess efficacy of current diabetes regimen. We discussed the value in doing a CGM trial, Carey is agreeable to an unblinded CGM trial. Carey would like to begin the process to order the Veronica 2 sensor system Briefly discussed various medication options, trialed and failed metformin and Farxiga, I would be hesitant to start another SGLT2-inhibitor. Carey would be interested in a once weekly injectable medication and we did briefly discuss GLP-1 agonists. Could also consider DPP-4 inhibitors, though not as robust as a GLP-1 agonist. Briefly discussed current Lantus dose and action of sulfonylureas. Encouraged efforts at balanced, mindful eating and making slow, gradual lifestyle adjustments Encouraged efforts at increasing physical activity as tolerated Advised to contact office with any questions or concerns, otherwise we will follow up in 6 weeks once Carey returns from vacation and for CGM evaluation CGM Veronica 2 Training Type of Diabetes: type 2 diabetes Assessment/HPI: Carey is here to learn how to use the Veronica 2 CGM Procedures: Glucose Monitoring: Type of Sensor: veronica 2 personal Instruction: Patient Instructed on: 03/04/22, Calibrations, When to test BS, Troubleshooting, What to expect with the sensor, Patient instructed to remove sensor if redness, pain or bleeding occurs. . Insertion Site Selected: back of left arm Site Prep: Insertion site wiped with alcohol. Insertion: completed, area looks good, no redness, no bleeding. Plan: Patient will remove sensor and return in 6 weeks Assessment & Plan (12/24/2021 10:34 AM EDT): Uncontrolled Refer to DM Center Benign essential hypertension 12/24/2021 Assessment & Plan (01/21/2025 2:33 PM EDT): BP in good range today BP goal < 130/80 On ACEi, preferred with DM given renal protective qualities Assessment & Plan (10/16/2024 10:12 AM EDT): BP in good range today BP goal < 130/80 On ACEi, preferred with DM given renal protective qualities Assessment & Plan (07/06/2023 10:14 AM EST): BP in good range today BP goal < 130/80 On ACEi, preferred with DM given renal protective qualities Assessment & Plan (02/21/2023 1:42 PM EDT): BP in good range today BP goal < 130/80 On ACEi, preferred with DM given renal protective qualities Assessment & Plan (11/08/2022 1:04 PM EDT): BP in excellent range today BP goal < 130/80 On ACEi, preferred with DM given renal protective qualities Assessment & Plan (08/06/2022 10:26 AM EST): Controlled on meds Assessment & Plan (07/19/2022 4:01 PM EST): BP in excellent range today BP goal < 130/80 On ACEi, preferred with DM given renal protective qualities Assessment & Plan (04/15/2022 12:36 PM EDT): BP essentially normal today BP goal < 130/80 On ACEi, preferred with DM given renal protective qualities Assessment & Plan (03/04/2022 11:27 AM EDT): BP essentially normal today BP goal < 130/80 On ACEi, preferred with DM given renal protective qualities Assessment & Plan (12/24/2021 10:28 AM EDT): Well controlled on meds Goal bp 130/80 or less Hyperlipidemia 12/24/2021 Assessment & Plan (01/21/2025 2:33 PM EDT): Reviewed most recent lipid panel LDL <100 but mildly above goal in DM < 70 On moderate intensity statin Assessment & Plan (10/16/2024 10:12 AM EDT): Reviewed most recent lipid panel LDL <100 but mildly above goal in DM < 70 On moderate intensity statin Assessment & Plan (07/06/2023 10:58 AM EST): No updated lipid panel since last visit, overdue, has pending labs placed by PCP, Carey is reminded to have these done LDL elevated, goal in DM < 70 On moderate intensity statin Assessment & Plan (02/21/2023 1:44 PM EDT): No updated lipid panel since last visit LDL elevated, goal in DM < 70 On moderate intensity statin Assessment & Plan (11/08/2022 1:04 PM EDT): No updated lipid panel since last visit LDL elevated, goal in DM < 70 On moderate intensity statin Assessment & Plan (08/06/2022 10:27 AM EST): Controlled on Atorvastatin Assessment & Plan (07/19/2022 4:00 PM EST): No updated lipid panel since last visit LDL elevated, goal in DM < 70 On moderate intensity statin Assessment & Plan (04/15/2022 12:36 PM EDT): No updated lipid panel since last visit LDL elevated, goal in DM < 70 On moderate intensity statin Assessment & Plan (03/04/2022 11:28 AM EDT): Reviewed most recent lipid panel LDL 82 LDL goal in DM < 70 On moderate intensity statin Assessment & Plan (12/24/2021 10:34 AM EDT): Controlled on meds DJD (degenerative joint disease) 12/24/2021 Assessment & Plan (08/06/2022 10:27 AM EST): Likely OA in hands Supportive care voltaren gel, etc. Assessment & Plan (12/24/2021 10:35 AM EDT): Trial Voltaren gel or CBD ointment for painful heberdens nodes on fingers Saw ortho but not a good option re surgery Encounters Date Type Department Care Team Description 03/11/2025 Orders Only [facility] [address] [facility] [place] [address] José Miguel Rascon MD 02/19/2025 Refill [facility] [address] [facility] [place] [address] Jeovanny Saenz MD Medication Refill 01/21/2025 11:20 AM EDT Office Visit [facility] [address] [place] [address] Rhianna Kee CNP Type 2 diabetes mellitus with hyperglycemia, without long-term current use of insulin (Primary Dx); Hyperlipidemia, unspecified hyperlipidemia type; Benign essential hypertension 01/09/2025 Orders Only [facility] [address] [facility] [place] [address] José Miguel Rascon MD from Last 3 Months Immunizations Immunization Administration Dates Next Due Influenza High-Dose Quadrivalent Preservative Fr ee IM 06/09/2021 Influenza Quadrivalent Preservative Free IM 04/03 Tdap 10/13/2023 Family History Medical History Relation Comments Diabetes type II Mother Relation Status Comments Father Mother Sister Alive Son 1 Alive Son 2 Alive Social History Tobacco Use Types Packs/Day Years Used Date Smoking Tobacco: Former Cigarettes 2017 Smokeless Tobacco: Never Tobacco Cessation:Counseling Given: Not Answered Comments:Smoked 6-7 cigarettes a day from 1999 to 2007. Alcohol [...] Orientation Asexual 03/03/2022 12 :23 PM EDT Last Filed Vital Signs Vital Sign Reading Time Taken Comments Blood Pressure 130/70 01/21/2025 11:10 AM EDT Pulse 93 01/21/2025 11:10 AM EDT Temperature 36.7 C (98 F) 11/05/2024 11:19 AM EDT Respiratory Rate 16 11/05/2024 11:19 AM EDT Oxygen Saturation 97% 11/05/2024 11:19 AM EDT Inhaled Oxygen Concentration - - Weight 69.9 kg (154 lb) 01/21/2025 11:10 AM EDT Height 168.1 cm (5' 6.18 ) 01/21/2025 11:10 AM E DT Body Mass Index 24.72 01/21/2025 11:10 AM EDT Plan of Treatment Upcoming Encounters Date Type Department Care Team (Late st Contact Info) Description 05/14/2025 11:00 AM EST Office Visit [facility] [address] [place] [address] Rhianna Kee, SULEMA [address] [facility] [place] [address] 05/24/2025 11:00 AM EST Office Visit [facility] [address] [place] [address] Jeovanny Saenz MD [address] [place] [address] [email or web address] Health Maintenance Due Date Last Done Comments SMOKING Hx and SMOKELESS TOBACCO SCREENING 1965 HEPATITIS C SCREENING 1970 PNEUMOCOCCAL VACCINES (50+ years) (1 of 2 - PCV) 1971 COLOGUARD 1997 FIT TEST 1997 FOBT 1997 SIGMOIDOSCOPY 1997 VIRTUAL COLONOSCOPY 1997 ZOSTER VACCINES (1 of 2) 2002 RSV VACCINE (1 - Risk 60-74 years 1-dose series) 2012 OSTEOPOROSIS SCREENING INITIAL (ONE-TIME) 2017 HEMOGLOBIN A1C 01/30/2025 10/31/2024, 04/03, 07/06/2023, Additional history exists INFLUENZA VACCINE (#1) 2025 04/21/2023, 2020 COVID-19 VACCINE ( - season) 2025 04/16/2021, 07/21/2020, 06/30/2020 BLOOD PRESSURE 07/24/2025 01/21/2025 CREATININE LEVEL 10/31/2025 10/31/2024, 01/2024, 12/08/2021, Additional history exists POTASSIUM LEVEL 10/31/2025 10/31/2024, 020 01/2024, 12/08/2021, Additional history exists DEPRESSION SCREENING 11/05/2025 11/05/2024 DIABETIC EYE EXAM 03/11/2026 03/11/2025, , 08/10/2023, Additional history exists MAMMOGRAM 11/05/2026 11/05/2024, 11/2022, 08/06/2022, Additional history exists COLONOSCOPY 12/13/2026 12/13/2016, 12/13/2016 COLORECTAL CANCER SCREENING 12/13/2026 Adult Td,Tdap Booster 10/12/2033 10/13/2023 HEPATITIS A VACCINES Aged Out No long er eligible based on patient's age to complete this topic HIB VACCINES Aged Out No longer eligi ble based on patient's age to complete this topic MENINGOCOCCAL VACCINES (ACWY) Aged Out No longer eligible based on patient's age to complete this topic MENINGOCOCCAL VACCINES (B) Aged Out N o longer eligible based on patient's age to complete this topic Medical Devices Not on file Procedures Procedure Name Priority Date/Time Associated Diagnosis Comments HM DIABETES EYE EXAM FOR RESULT ENTRY ONLY Routine 03/11/2025 2:28 PM EDT OUTSIDE IMAGING Routine 01/08/2025 3:04 PM EDT BI MAMMOGRAM SCREENING (BILATERAL) Routine 11/05/2024 11:55 AM EDT Screening mammogram, encounter for HEMOGLOBIN A1C Routine 10/31/2024 9:23 AM EDT Type 2 diabetes mellitus without complication, without long-term current use of insulin COMPREHENSIVE METABOLIC PANEL Routine 10/31/2024 9:23 AM EDT Acute left-sided low back pain with left-sided sciatica Benign essential hypertension Type 2 diabetes mellitus without complication, without long-term current use of insulin HM COLONOSCOPY FOR RESULT ENTRY ONLY Routine 12/13/2016 from Last 3 Months or Most Recently Relevant to Health Maintenance Results * DIABETES EYE EXAM FOR RESULT ENTRY ONLY (03/11/2025 2:28 PM EDT) Historical Provider HEALTH MAINTENANCE Final Result * Outside Imaging Report Only (01/08/2025 3:04 PM EDT) Historical Provider IMG XR CHEST Final Res ult * (ABNORMAL) Comprehensive metabolic panel (10/31/2024 9:23 AM EDT) SODIUM 143 133 - 146 mmol/L [facility] POTASSIUM 4.2 3.3 - 5.1 mmol/L [facility] CHLORIDE 107 96 - 108 mmol/L [facility] CO2 25 21 - 35 mmol/L [facility] BUN 18 6 - 19 mg/dL [facility] CREATININE 0.70 0.5 - 1.5 mg/dL [facility] GLUCOSE 211(H) 70 - 99 mg/dL [facility] ALBUMIN 4.3 3.9 - 4.8 g/dL [facility] TOTAL PROTEIN 6.6 6.5 - 8.0 g/dL [facility] CALCIUM 9.3 8.4 - 10.3 mg/dL [facility] ALKALINE PHOSPHATASE 89 39 - 117 U/L [facility] TOTAL BILIRUBIN 0.4 0.0 - 1.2 mg/dL [facility] AST 17 0 - 37 U/L [facility] ALT 18 0 - 40 U/L [facility] GLOBULIN 2.3 1 - 4.8 g/dL [facility] EGFR 92 >59 mL/min/1.7 3m2 [facility] Comment:Estimated glomerular filtration rate calculated using the CKD-EPI refit equation. ANION GAP 15 10 - 20 mmol/L [facility] Blood 10/31/2024 9:23 AM EDT 10/31/2024 9:26 AM EDT Jeovanny Saenz MD LAB BLOOD ORDERABLES Final Re sult [address] [address] * (ABNORMAL) Hemoglobin A1c (10/31/2024 9:23 AM EDT) HEMOGLOBIN A1C 8.5(H) 4.3 - 5.8 % [facility] Blood 10/31/2024 9:23 AM EDT 10/31/2024 9:26 AM EDT us Jeovanny Saenz MD LAB BLOOD ORDERABLES Final Re sult Performing Organization Address City/[facility]/ZIP Co de Phone Number [address] [address] * COLONOSCOPY FOR RESULT ENTRY ONLY (12/13/2016) Colonoscopy path done report requested Historical Provider HEALTH MAINTENANCE Final Result * MAMMOGRAPHY FOR RESULT ENTRY ONLY (07/08/2016) Mammogram Birads 1 Negative Historical Provider HEALTH MAINTENANCE Final Result from Last 3 Months or Most Recently Relevant to Health Maintenance Insurance [place] [id number] [employer] [place] MED[place] POS PPO REPLACEMENT MEDICARE PART A & B [place] [place] MED[place] POS PPO REPLACEMENT MEDICARE PART A & B MEDICARE PART A & B MEDICARE PART A & [place] [place] MED[place] POS PPO REPLACEMENT MEDICARE PART A & B MEDICARE PART A & B MEDICARE POS PPO REPLACEMENT MEDICARE PART A & B [place] MED[place] POS PPO REPLACEMENT MEDICARE PART A & B [place] [place] MEDIC[place] POS PPO REPLACEMENT Member Subscriber Plan / Payer (Ef fective 2022-Present) Name:Carey Truong Relation to Subscriber:Self Name:Carey Truong Payer ID:Not on file Type:Medicare Address: [place] [id number] Care Teams Border Machine Operator Relationship Specialty Start Date End Date Jeovanny Saenz MD [address] [place] [address] [email or web address] PCP - General Internal Medicine 03/08/23 Additional Source Comments The information contained in this document represents components of the legal health record. It is not the complete legal health record.[facility]
--- OUTSIDE RECORDS SUMMARY | 2025-03-18 14:58 | XMS_ITS | Encounter Summary ---
Author Organization [facility] Address [address] [place] [address] Phone Care Team Providers Care Co Op Name Role Phone Jeovanny Saenz MD Primary Care Provider [phone] Encounter Details Date Type Department Care Team (Latest Contact Info) Description 06/28/2024 Ancillary Orders [facility] [address] [place], [place] [phone] Dayton Frederick PA-C [address] [place], [place] [phone] [email or web address] Lumbar radiculopathy (Primary Dx) Social History Tobacco Use Types Packs/Day Years [...] Description 05/14/2025 11:00 AM EST Office Visit [facility] [address] [place] [address] Rhianna Kee, DEPUTY DISTRICT CUSTOMS DIRECTOR [address] [facility], 1st [place] [address] [email or web address] 05/24/2025 11:00 AM EST Office Visit [facility] [address] [place] [address] Jeovanny Saenz MD [address] [place] [address] [email or web address] documented as of this encounter Results * XR LUMBOSACRAL SPINE 2-3 VIEWS (06/28/2024 2:00 PM EST) MGB IMG RECOMMENDATION COMMENT Differential : possible aortic aneurysm [facility] Anatomical Region Laterality Modality L-spine Computed Radiogr aphy 06/28/2024 2:33 PM EST Impressions 06/28/2024 2:46 PM EST Mild levoconvex curvature with multilevel degenerative changes. Possible aortic aneurysm. RECOMMEND: Ultrasound aorta between 0 and 1 months for possible aortic aneurysm. Follow-up recommendations were communicated and documented using a closed loop communication system. Narrative 06/28/2024 2:46 PM EST XR LUMBOSACRAL SPINE 2-3 VIEWS Referring clinician's provided indication for this examination in Epic: Lumbar radiculopathy, > 6 wks COMPARISON: None FINDINGS: Mild levoconvex curvature. Osseous demineralization. No compression fracture. Multilevel degenerative disc disease with disc height loss, vacuum phenomenon, and degenerative endplate sclerosis/spurring. Degenerative facet arthritis, most advanced in the lower lumbar spine. Atherosclerotic vascular calcifications with possible aortic aneurysm. Procedure Note Tom Boyer MD - 06/28/2024 XR LUMBOSACRAL SPINE 2-3 VIEWS Referring clinician's provided indication for this examination in Epic:Lumbar radiculopathy, > 6 wks COMPARISON: None FINDINGS: Mild levoconvex curvature. Osseous demineralization. No compressionfracture. Multilevel degenerative disc disease with disc height loss,vacuum phenomenon, and degenerative endplate sclerosis/spurring.Degenerative facet arthritis, most advanced in the lower lumbar spine.Atherosclerotic vascular calcifications with possible aortic aneurysm. IMPRESSION: Mild levoconvex curvature with multilevel degenerative changes. Possible aortic aneurysm. RECOMMEND: Ultrasound aorta between 0 and 1 months for possible aorticaneurysm. Follow-up recommendations were communicated and documented using a closedloop communication system. Dayton Frederick PA-C IMG XR SPINE Final Result documented in this encounter Visit Diagnoses Diagnosis Lumbar radiculopathy- Primary Thoracic or lumbosacral neuritis or radiculitis, unspecified Lumbar radiculopathy Thoracic or lumbosacral neuritis or radiculitis, unspecified documented in this encounter Additional Health Concerns Assessment Noted Time PHQ-2 Depression Total Score: 0 04/24/20 24 10:48 AM EDT documented as of this encounter Care Teams Co Op Relationship Specialty Start Date End Date Jeovanny Saenz MD [address] [place] [phone] [email or web address] PCP - General Internal Medicine 03/08/23 documented as of this encounter Additional Source Comments The information contained in this document represents components of the legal health record. It is not the complete legal health record.[facility]
== END 2025-03-18 13:44 | disposition home or self-care (01) ==
LOC: HO.HNS 11:09
PROVIDERS: PCP Internal Medicine; Visit Provider Physician Assistant
DX: M48.062 Spinal stenosis, lumbar region with neurogenic claudication (principal)
CPT/HCPCS: 99024

== ENCOUNTER → 2025-03-18 11:09 | Outpatient (BNVA) | payer MEDICARE, SELFPAY | PROVIDERS: PCP Internal Medicine; Visit Provider Physician Assistant | DX: M48.062 Spinal stenosis, lumbar region with neurogenic claudication (principal) | CPT/HCPCS: 99212 ==

== ENCOUNTER 2025-04-08 10:29 | Outpatient (REF) | payer MEDICARE, SELFPAY ==
--- NOTE | ~2025-04-08 | MR_ITS ---
EXAM: MRI lumbar spine without and with IV contrast TECHNIQUE: Multiplanar multisequence imaging was performed through the lumbar spine without and with IV contrast. INDICATION: M48.062 - Spinal stenosis, lumbar region with neurogenic claudication CONTRAST: 7 mL Gadavist PRIOR: X-ray on 04/08/2025 FINDINGS: 5 non-rib bearing lumbar segments are present on x-ray. There is pseudoarticulation of the transverse processes of L5 with sacrum. Marrow: L1-2: There is mixed Modic 1-2 signal. L2-3: Modic 1 signal. L3-4: Mixed Modic 1-2 signal L4-5: Modic 2 signal L5-S1: Modic 2 signal Benign simple renal cysts are present in the left. There is fusiform dilation of the abdominal aorta below the renal arteries. The transverse diameter of the aorta is 4.2 cm. Postsurgical changes are present with scarring and enhancement of the soft tissues posteriorly between the levels of L2-3 and L4-5. The termination of conus medullaris is within normal limits at the level of T12-L1. Without Contrast: T12-L1: Unremarkable L1-L2: There is moderate loss of disc height and circumferential broad-based disc bulge. There is mild ligamentum flavum thickening. There is mild spinal stenosis and mild narrowing of the subarticular zones. There is no foraminal narrowing. L2-L3: There is moderate loss disc height and circumferential broad-based disc bulge and small right foraminal extrusion with mild facet degeneration and ligamentum flavum thickening. Left hemilaminectomy has been performed. There is mild spinal stenosis and mild foraminal narrowing and mild subarticular zone narrowing, right greater than left. There is mild to moderate right and minimal left foraminal narrowing. L3-L4: Left hemilaminectomy has been performed. There is circumferential broad-based disc bulge and moderate to severe facet degeneration resulting in severe spinal stenosis and moderate bilateral foraminal narrowing. L4-L5: Left hemilaminectomy has been performed. There is circumferential broad-based disc bulge and moderate ligamentum flavum thickening with facet arthropathy. There is moderate spinal stenosis with subarticular zone narrowing, left greater than right, likely with encroachment of L5 nerve roots, greater on the left. There is severe left foraminal narrowing with encroachment of left L4 nerve root. There is no right foraminal narrowing. L5-S1: There is mild loss disc height and circumferential broad-based disc bulge with mild to moderate facet degeneration and mild to moderate ligamentum flavum thickening resulting in mild spinal stenosis and subarticular zone narrowing and displacement of S1 nerve roots. There is moderate to severe right and moderate left foraminal narrowing. MR/MR lumbar spine wo/w con IMPRESSION: Infrarenal abdominal aortic aneurysm measures 4.2 cm diameter. Postsurgical changes with left hemilaminectomy at L2-3, L3-4, and L5. L1-L2: There is mild spinal stenosis and mild narrowing of the subarticular zones. L2-L3: There is mild spinal stenosis and mild subarticular zone narrowing, right greater than left. There is mild to moderate right foraminal narrowing. L3-L4: There is severe spinal stenosis and moderate bilateral foraminal narrowing. L4-L5: . There is moderate spinal stenosis with subarticular zone narrowing, left greater than right, likely with encroachment of L5 nerve roots, greater on the left. There is severe left foraminal narrowing with encroachment of left L4 nerve root. L5-S1: There is mild spinal stenosis and subarticular zone narrowing and displacement of S1 nerve roots. There is moderate to severe right and moderate left foraminal narrowing. Electronically signed by: Ponce Paniagua MD 04/08/2025 12:57 PM EDT
--- NOTE | ~2025-04-08 | XR_ITS ---
EXAMINATION: X-ray lumbar spine CLINICAL INFORMATION: Spinal stenosis COMPARISON: None TECHNIQUE: 4 views including flexion and extension views. FINDINGS: Bones appear osteopenic. Levoconvex curvature. No evidence of acute fracture. Multilevel moderate-severe disc degeneration, disc height loss, endplate osteophytes. Multilevel facet degeneration. No significant subluxation is identified on the flexion or extension views. SI joints are symmetric. No suspicious soft tissue calcifications. Vascular calcifications. No free air is seen. XR/XR lumbar spine 4V min IMPRESSION: Severe lumbar spondylosis. No radiographic evidence of acute fracture. Electronically signed by: Dakota Breen MD 04/08/2025 11:02 AM EDT
--- OUTSIDE RECORDS SUMMARY | 2025-04-08 12:22 | XMS_ITS | Clinical Summary ---
[facility] Organization [facility] Address [address] [place] [address] Care Team Providers Care Zoology Professor Name Role Phone Alex Shepard MD Primary Care Provider [phone] Surgical History Surgery Date Site/Laterality Comments OTHER SURGICAL HISTORY PROCEDURE: DENIES PREVIOUS SURGERY Medical History Medical History Date Comments Essential hypertension DX:Essent ial hypertension Hyperlipidemia DX:Hyperlipidemi a Diabetes mellitus type 2, co ntrolled, with complications (CMS/HCC V24, CMS/HCC V28) DX:Diabetes mellitus type 2, controlled, with complications ([facility]) Social History Tobacco Use Types Packs/Day [...] Recently Relevant to Health Maintenance Care Teams Zoology Professor Relationship Specialty Start Date End Date Alex Shepard MD [address] [place] [address] Dr Doan, NANCY [address] PCP - General Internal Medicine 09/24/17
--- OUTSIDE RECORDS SUMMARY | 2025-04-08 12:22 | XMS_ITS | Encounter Summary ---
Author Organization [facility] Address [address] [place] [address] Phone Care Team Providers Care Machine Repairer Maintenance Name Role Phone Jeovanny Saenz MD Primary Care Provider [phone] Encounter Details Date Type Department Care Team (Late st Contact Info) Description 03/11/2025 Orders Only [facility] Internal Medicine [address] [place] [address] Provider, MD José Miguel [address] [place] [address] Social History Tobacco Use Types Packs/Day Years [...] Description 05/14/2025 11:00 AM EST Office Visit [facility] [address] [place] [address] Rhianna Kee CNP [address] [place] [address], [address] [place] [address] 05/24/2025 11:00 AM EST Office Visit [facility] Internal Medicine [address] [place] [address] Jeovanny Saenz MD [address] [place] [address] documented as of this encounter Procedures Procedure [...] documented as of this encounter Care Teams Machine Repairer Maintenance Relationship Specialty Start Date End Date Jeovanny Saenz MD [address] [place] [address] [email or web address] PCP - General Internal Medicine 03/08/23 documented as of this encounter Additional Source Comments The information contained in this document represents components of the legal health record. It is not the complete legal health record.[facility]
--- OUTSIDE RECORDS SUMMARY | 2025-04-08 12:22 | XMS_ITS | Clinical Summary ---
Author Organization [facility] Address [address] [address] Phone Care Team Providers Care Laborer [employer] Bakery Name Role Phone Jeovanny Saenz MD Primary Care Provider [phone] Allergies Active Allergy Reactions Criticality Noted Date Comments Dapagliflozin 12/24/2021 Metformin 12/24/2021 Medications multivitamins capsule Take 1 capsule by mouth daily. Active ascorbic acid, vitamin C, (VITAMIN C) 500 mg Chew Take 500 mg by mouth daily. Active sertraline (ZOLOFT) 25 MG tablet TAKE 1 TABLET (25 MG TOTAL) BY MOUTH DAILY. 90 tablet 3 05/21/20 24 Active diclofenac sodium (VOLTAREN) 75 MG EC tabletIndicatio ns:Acute bilateral low back pain without sciatica TAKE 1 TABLET BY MOUTH TWICE A DAY 20 tablet 08/10/19 25 Active Additional Information Patient not taking.Reported on 01/21/2025 cholecalciferol , vitamin D3, (VITAMIN D3 ORAL) Take 1 tablet by mouth daily. Active BD LUCIEN 2ND GEN PEN NEEDLE 32 gauge x NdleIndications :Type 2 diabetes mellitus with hyperglycemia, without long-term current use of insulin Inject 1 each under the skin every morning. Use as directed to administer insulin 90 each 3 10/17/19 25 Active glipiZIDE (GLUCOTROL XL) 10 MG 24 hr tabletIndicatio ns:Type 2 diabetes mellitus with hyperglycemia, without long-term current use of insulin Take 1 tablet (10 mg total) by mouth every morning. 90 tablet 3 10/17/19 25 Active ALLEYUARNAV BUENOOSTAR U-300 INSULIN 300 unit/mL (1.5 mL) injection penIndications: Type 2 diabetes mellitus with hyperglycemia, without long-term current use of insulin Inject 40 Units under the skin daily. 12 mL 3 10/17/19 25 Active calcitonin, salmon, (MIACALCIN) 200 unit/actuation nasal spray 1 spray by Nasal route nightly at bedtime. 11/02/19 25 Active naproxen (NAPROSYN) 500 MG tablet Take 1 tablet (500 mg total) by mouth 2 (two) times a day with meals. 60 tablet 1 02/21/20 25 Active atorvastatin (LIPITOR) 20 MG tabletIndicatio ns:Hyperlipidem ia TAKE 1 TABLET BY MOUTH EVERY DAY 90 tablet 3 04/01/20 25 Active lisinopril (PRINIVIL,ZESTR IL) 10 MG tabletIndicatio ns:Benign essential hypertension TAKE 1 TABLET BY MOUTH EVERY DAY 90 tablet 3 04/01/20 25 Active lisinopril (PRINIVIL,ZESTR IL) 10 MG tabletIndicatio ns:Benign essential hypertension take 1 tablet by mouth every day 90 tablet 3 04/02/20 24 025 Discontinued atorvastatin (LIPITOR) 20 MG tabletIndicatio ns:Hyperlipidem ia take 1 tablet by mouth every day 90 tablet 3 04/02/20 24 025 Discontinued Active Problems Problem Noted Date Diagnosed Date [...] spine patient will have this done at [facility] -Patient has done [...] Encounters Date Type Department Care Team Description 03/31/2025 Refill [facility] Internal Medicine [address] [place] [address] Jeovanny Saenz MD Medication Refill 03/11/2025 Orders Only [facility] [address] [place] [address] ProviderJosé Miguel MD 02/19/2025 Refill [facility] [address] [place] [address] Jeovanny Saenz MD Medication Refill 01/21/2025 11:20 AM EDT Office Visit [facility] [address] [place] [address] Rhianna Kee, SULEMA Type 2 diabetes mellitus with hyperglycemia, without long-term current use of insulin (Primary Dx); Hyperlipidemia, unspecified hyperlipidemia type; Benign essential hypertension 01/09/2025 Orders Only [facility] [address] [place] [address] Provider, MD José Miguel from Last 3 Months Immunizations Immunization Administration [...] Former Cigarettes - 2017 Smokeless Tobacco: Never Tobacco Cessation:Counseling Given: [...] Description 05/14/2025 11:00 AM EST Office Visit [facility] [address] [place] [address] Rhianna Kee, SULEMA 22 [facility], [address] [place] [address] 05/24/2025 11:00 AM EST Office Visit [facility] [address] [place] [address] Jeovanny Saenz MD [address] [place] [address] Health Maintenance Due Date Last Done Comments SMOKING Hx and SMOKELESS TOBACCO SCREENING 1965 HEPATITIS C SCREENING 1970 PNEUMOCOCCAL VACCINES (50+ years) (1 of 2 - PCV) 1971 COLOGUARD 1997 FIT TEST 1997 FOBT 1997 SIGMOIDOSCOPY 1997 VIRTUAL COLONOSCOPY 1997 RSV VACCINE (1 - Risk 50-74 years 1-dose series) 2002 ZOSTER VACCINES (1 of 2) 2002 OSTEOPOROSIS SCREENING INITIAL (ONE-TIME) 2017 HEMOGLOBIN A1C 01/30/2025 10/31/2024, 04/03, 07/06/2023, Additional history exists INFLUENZA VACCINE (#1) 2025 04/21/2023, 2020 COVID-19 VACCINE ( season) 2025 04/16/2021, 07/21/2020, 06/30/2020 BLOOD PRESSURE 07/24/2025 01/21/2025 CREATININE LEVEL 10/31/2025 10/31/2024, 01/2024, 12/08/2021, Additional history exists POTASSIUM LEVEL 10/31/2025 10/31/2024, 02/0 01/2024, 12/08/2021, Additional history exists DEPRESSION SCREENING 11/05/2025 11/05/2024 DIABETIC EYE EXAM 03/11/2026 03/11/2025, , 08/10/2023, Additional history exists MAMMOGRAM 11/05/2026 11/05/2024, 09/0 11/2022, 08/06/2022, Additional history exists COLONOSCOPY 12/13/2026 [...] complication, without long-term current use of insulin COLONOSCOPY FOR RESULT ENTRY ONLY Routine 12/13/2016 from Last 3 Months or Most Recently Relevant to Health Maintenance Results * DIABETES EYE EXAM FOR RESULT ENTRY ONLY (03/11/2025 2:28 PM EDT) us Historical Provider HEALTH MAINTENANCE Final Result * Outside Imaging Report Only (01/08/2025 3:04 PM EDT) us Historical Provider IMG XR CHEST Final Res ult * (ABNORMAL) Comprehensive metabolic panel (10/31/2024 9:23 AM EDT) SODIUM 143 133 - 146 mmol/L [facility] POTASSIUM 4.2 3.3 - 5.1 mmol/L [facility] CHLORIDE 107 96 - 108 mmol/L [facility] CO2 25 21 - 35 mmol/L [facility] BUN 18 6 - 19 mg/dL [facility] CREATININE 0.70 0.5 - 1.5 mg/dL [facility] GLUCOSE 211(H) 70 - 99 mg/dL [facility] ALBUMIN 4.3 3.9 - 4.8 g/dL [facility] TOTAL PROTEIN 6.6 6.5 - 8.0 g/dL [facility] CALCIUM 9.3 8.4 - 10.3 mg/dL [facility] ALKALINE PHOSPHATASE 89 39 - 117 U/L [facility] TOTAL BILIRUBIN 0.4 0.0 - 1.2 mg/dL [facility] AST 17 0 - 37 U/L [facility] ALT 18 0 - 40 U/L [facility] GLOBULIN 2.3 1 - 4.8 g/dL [facility] EGFR 92 >59 mL/min/1.7 3m2 [facility] Comment:Estimated glomerular filtration rate calculated using the CKD-EPI refit equation. ANION GAP 15 10 - 20 mmol/L [facility] Blood 10/31/2024 9:23 AM EDT 10/31/2024 9:26 AM EDT Jeovanny Saenz MD LAB BLOOD ORDERABLES Final Re sult Performing Organization Address City/[facility]/ZIP Co de Phone Number [address] [address] * (ABNORMAL) Hemoglobin A1c (10/31/2024 9:23 AM EDT) HEMOGLOBIN A1C 8.5(H) 4.3 - 5.8 % [facility] Blood 10/31/2024 9:23 AM EDT 10/31/2024 9:26 AM EDT Jeovanny Saenz MD LAB BLOOD ORDERABLES Final Re sult Performing Organization Address [facility]/ZIP Co de Phone Number [address] [address] * COLONOSCOPY FOR RESULT ENTRY ONLY (12/13/2016) Colonoscopy path done report requested Historical Provider HEALTH MAINTENANCE Final Result * MAMMOGRAPHY FOR RESULT ENTRY ONLY (07/08/2016) Mammogram Birads 1 Negative Historical Provider HEALTH MAINTENANCE Final Result from Last 3 Months or Most Recently Relevant to Health Maintenance Insurance MEDICARE PART A & B [place] POS PPO REPLACEMENT MEDICARE PART A & B MEDICARE POS PPO REPLACEMENT MEDICARE PART A & B MEDICARE PART A & B MEDICARE PART A & B [place] MED[place] POS PPO REPLACEMENT MEDICARE PART A & B MEDICARE PART A & B Member Subscriber Plan / Payer (Ef fective 2020-) Name:Carey Truong Member ID:[id number] Relation to Subscriber:Self Name:Carey Truong Subscriber ID:[id number] Payer ID:[id number] Group ID:Not on file Type:Medicare Address: [employer] [address] MEDICARE POS PPO REPLACEMENT MEDICARE PART A & B MEDICARE POS PPO REPLACEMENT MEDICARE PART A & B [place] MEDIC[place] POS PPO REPLACEMENT Member Subscriber Plan / Payer (Ef fective 2022-Present) Name:Carey Truong Relation to Subscriber:Self Name:Carey Truong Payer ID:Not on file Type:Medicare Address: [place] [id number] Care Teams Laborer [employer] Bak[employer] Relationship Specialty Start Date End Date Jeovanny Saenz MD [address] [place] [phone] [email or web address] PCP - General Internal Medicine 03/08/23 Additional Source Comments The information contained in this document represents components of the legal health record. It is not the complete legal health record.[facility]
--- OUTSIDE RECORDS SUMMARY | 2025-04-08 12:22 | XMS_ITS | Encounter Summary ---
Author Organization [facility] Address [address] [place] [address] Phone Care Team Providers Care Manager Water Wastewater Name Role Phone Jeovanny Saenz MD Primary Care Provider Encounter Details Date Type Department Care Team (Late st Contact Info) Description 07/11/2024 Procedure Pass [facility], [address] [address] Social History Tobacco Use Types Packs/Day Years [...] Description 05/14/2025 11:00 AM EST Office Visit [facility] [address] [place] [address] Rhianna Kee CNP 22 [facility], 1st [place] [address] [email or web address] 05/24/2025 11:00 AM EST Office Visit [facility] Medicine [address] [place] [address] Jeovanny Saenz MD [address] [place] [address] [email or web address] documented as of this encounter Visit Diagnoses Not on filedocumented in this encounter Additional Health Concerns Assessment Noted Time PHQ-2 Depression Total Score: 0 04/24/20 24 10:48 AM EDT documented as of this encounter Care Teams Manager Water Wastewater Relationship Specialty Start Date End Date Jeovanny Saenz MD [address] [place] [address] [email or web address] PCP - General Internal Medicine 03/08/23 documented as of this encounter Additional Source Comments The information contained in this document represents components of the legal health record. It is not the complete legal health record.[facility]
--- OUTSIDE RECORDS SUMMARY | 2025-04-08 12:22 | XMS_ITS | Encounter Summary ---
Author Organization [facility] Address [email or web address] [place] [address] Phone Care Team Providers Care Police Communications Dispatcher Name Role Phone Jeovanny Saenz MD Primary Care Provider [phone] Encounter Details Date Type Department Care Team (Latest Contact Info) Description 06/28/2024 Ancillary Orders [facility] Internal Medicine [address] [place], [place] [phone] Dayton Frederick PA-C [address] [place], [place] [phone] [email or web address] Lumbar radiculopathy (Primary Dx) Social History [...] Description 05/14/2025 11:00 AM EST Office Visit [facility] [address] [place] [address] Rhianna Kee, GROWTH HACKER 22 [facility], 1st [place] [address] [email or web address] 05/24/2025 11:00 AM EST Office Visit [facility] Internal Medicine [address] [place] [address] Jeovanny Saenz MD [address] [place] [address] [email or web address] documented as of this encounter Results * [...] documented as of this encounter Care Teams Police Communications Dispatcher Relationship Specialty Start Date End Date Jeovanny Saenz MD [address] [place] [address] [email or web address] PCP - General Internal Medicine 03/08/23 documented as of this encounter Additional Source Comments The information contained in this document represents components of the legal health record. It is not the complete legal health record.[facility]
== END 2025-04-08 10:30 | disposition home or self-care (01) ==
LOC: HO.MRI 10:29
PROVIDERS: PCP Internal Medicine; Visit Provider Physician Assistant
DX: M48.062 Spinal stenosis, lumbar region with neurogenic claudication (principal)
CPT/HCPCS: 72110; 72158; A9585

== ENCOUNTER → 2025-04-08 10:34 | Outpatient (BNV) | payer MEDICARE, SELFPAY | PROVIDERS: PCP Internal Medicine; Visit Provider Radiology Diagnostic Ultrasound | DX: M48.062 Spinal stenosis, lumbar region with neurogenic claudication (principal); I71.43 Infrarenal abdominal aortic aneurysm, without rupture; M47.816 Spondylosis without myelopathy or radiculopathy, lumbar region | CPT/HCPCS: 72110; 72158 ==

== ENCOUNTER 2025-05-03 13:41 | Outpatient (AMB) | payer MEDICARE, SELFPAY ==
--- NOTE | 2025-05-03 13:48 | A.SPINEOV_ITS ---
Intake Visit Reasons: MRI & X-Ray F/u Intake Note: Ms. Truong is here today to F/u on MRI & X-rays. Allergies No Known Allergies Allergy (Verified 03/18/25 11:35) Assessment & Plan Assessment & Plan (1) Lumbar stenosis with neurogenic claudication: Code(s): M48.062 - Spinal stenosis, lumbar region with neurogenic claudication Category: Medical Plan Dear colleague, On 05/03/2025, I saw for follow-up Carey Truong. She underwent an L2-L5 unilateral decompression for neurogenic claudication. Initially, the left leg pain continued. Fortunately, the symptoms have improved. She states that the bilateral legs feel heavy after walking or standing. The pain down her left leg is gone but she still has a painful spot left side of her back. She can walk a longer distance than preoperatively. Having said all of this, she is not symptom free. A standing x-ray shows a mild lumbar degenerative scoliosis L3-4 L4-5. The MRI shows severe left L4 foraminal stenosis and moderate central spinal stenosis at L3-4 and L4-5. The left side these levels are adequately decompressed. I told the patient to wait and see. If the symptoms do not further improve then I would recommend an oblique lumbar interbody fusion L3-4 and L4-5 to reverse the scoliosis and indirectly decompress the nervous structures. I do not think that additional nonfusion decompressions are going to be helpful. She will revisit me in a few months to discuss her clinical condition. Thank you for allowing me take care of the patient. I spent 20 minutes to review imaging and discussing plan of care. Dain Becerril MD, PhD Spine Fellowship Trained Neurosurgeon Director, [facility] Coding Level of Care Code Est Pt Level 3 (93335) Diagnoses Lumbar stenosis with neurogenic claudication M48.062
--- OUTSIDE RECORDS SUMMARY | 2025-05-03 14:37 | XMS_ITS | Encounter Summary ---
Author Organization [facility] Address [address] [facility] [address] [place] [address] Phone Care Team Providers Care Keyboard Operator Name Role Phone Jeovanny Saenz MD Primary Care Provider [phone] Reason for Referral * MRI/CAT Scan - Closed Specialty Diagnoses / Procedures Referred By Contac t Referred To Contact Radiology Procedures Outside MR Imaging Report Only [address] [address] Phone: tel: fax: Referral ID Status Reason Start Date Expiration Date Visits Re quested Visits Authorized [id number] Closed 04/08/2025 1 1 * MRI/CAT Scan - Closed Specialty Diagnoses / Procedures Referred By Contac t Referred To Contact Radiology Procedures Outside MR Imaging Report Only [address] [address] Phone: tel: fax: Referral ID Status Reason Start Date Expiration Date Visits Re quested Visits Authorized [id number] Closed 04/08/2025 1 1 Encounter Details Date Type Department Care Team (Late st Contact Info) Description 04/08/2025 Orders Only [address] [address] Provider, MD José Miguel [address] [place] [address] Social History Tobacco Use Types Packs/Day Years Used Date Smoking Tobacco: Former Cigarettes 2017 Smokeless Tobacco: Never Comments:Smoked 6-7 cigarett [...] Description 05/14/2025 11:00 AM EST Office Visit [facility] [address] [place] [address] Rhianna Kee CNP [address] [facility], 1st [place] [address] 05/24/2025 11:00 AM EST Office Visit [facility] Internal Medicine [address] [place] [address] Jeovanny Saenz MD [address] [place] [address] [email or web address] documented as of this encounter Procedures Procedure Name Priority Date/Time Associated Diagnosis Comments OUTSIDE MR IMAGING REPORT ONLY Routine 04/08/2025 4:14 PM EDT OUTSIDE MR IMAGING REPORT ONLY Routine 04/08/2025 3:59 PM EDT documented in this encounter Results * Outside MR Imaging Report Only (04/08/2025 4:14 PM EDT) Historical Provider MD JOHNSON MR Final Res ult * Outside MR Imaging Report Only (04/08/2025 3:59 PM EDT) Historical Provider MD JOHNSON MR Final Res ult documented in this encounter Visit Diagnoses Not on filedocumented in this encounter Additional Health Concerns Assessment Noted Time PHQ-2 Depression Total Score: 0 11/06/19 25 10:59 AM EDT documented as of this encounter Care Teams Keyboard Operator Relationship Specialty Start Date End Date Jeovanny Saenz MD [address] [place] [address] [email or web address] PCP - General Internal Medicine 03/08/23 documented as of this encounter Additional Source Comments The information contained in this document represents components of the legal health record. It is not the complete legal health record.[facility]
--- OUTSIDE RECORDS SUMMARY | 2025-05-03 14:37 | XMS_ITS | Clinical Summary ---
Author Organization [facility] Address [address] [place] [address] Care Team Providers Care Simulation Developer Name Role Phone Alex Shepard MD Primary Care Provider [phone] Surgical History Surgery Date Site/Laterality Comments OTHER SURGICAL HISTORY PROCEDURE: DENIES PREVIOUS SURGERY Medical History Medical History Date Comments Essential hypertension DX:Essent ial hypertension Hyperlipidemia DX:Hyperlipidemi a Diabetes mellitus type 2, co ntrolled, with complications (CMS/HCC V24, CMS/HCC V28) DX:Diabetes mellitus type 2, controlled, with complications ([facility]) Social History Tobacco Use Types Packs/Day Years [...] Recently Relevant to Health Maintenance Care Teams Simulation Developer Relationship Specialty Start Date End Date Alex Shepard MD [address] [place] [address] Dr Doan, NANCY [address] PCP - General Internal Medicine 09/24/17
--- OUTSIDE RECORDS SUMMARY | 2025-05-03 14:37 | XMS_ITS | Clinical Summary ---
Author Organization [facility] Address [address] [employer] [address] [address] Phone Care Team Providers Care Assistant Accounting Manager Name Role Phone Jeovanny Saenz MD Primary Care Provider Allergies Active Allergy Reactions Criticality Noted Date [...] every morning. 90 tablet 3 5 Active ALLEYUARNAV BUENOOSTAR U-300 INSULIN 300 unit/mL [...] with meals. 60 tablet 1 5 Active atorvastatin (LIPITOR) 20 MG tabletIndication s:Hyperlipidemia TAKE 1 TABLET BY MOUTH EVERY DAY 90 tablet 3 5 Active lisinopril (PRINIVIL,ZESTRI L) 10 MG tabletIndication s:Benign essential hypertension TAKE 1 TABLET BY MOUTH EVERY DAY 90 tablet 3 5 Active Active Problems Problem Noted Date [...] spine patient will have this done at [facility] -Patient has done [...] Encounters Date Type Department Care Team Description 04/08/2025 Orders Only [facility] [address] [place] [address] José Miguel Rascon MD 03/31/2025 Refill [facility] Internal Medicine [address] [place] [address] Jeovanny Saenz MD Medication Refill 03/11/2025 Orders Only [facility] Internal Medicine [address] [place] [address] José Miguel Rascon MD 02/19/2025 Refill [facility] Internal Medicine [address] [place] [address] Jeovanny Saenz MD Medication Refill from Last 3 Months Immunizations Immunization Administration [...] Description 05/14/2025 11:00 AM EST Office Visit [facility] [address] [place] [address] Rhianna Kee CNP 22 [facility], 1st [place] [address] [email or web address] 05/24/2025 11:00 AM EST Office Visit [facility] Internal Medicine [address] [place] [address] Jeovanny Saenz MD [address] [place] [address] [email or web address] Health Maintenance Due Date Last Done Comments [...] 08/10/2023, Additional history exists MAMMOGRAM 11/05/2026 11/05/2024, 090 11/2022, 08/06/2022, Additional history exists COLONOSCOPY 12/13/2026 [...] REPORT ONLY Routine 04/08/2025 3:59 PM EDT DIABETES EYE EXAM FOR RESULT ENTRY ONLY Routine 03/11/2025 2:28 PM EDT BI MAMMOGRAM SCREENING (BILATERAL) Routine [...] Recently Relevant to Health Maintenance Results * Outside MR Imaging Report Only (04/08/2025 4:14 PM EDT) Historical Provider MD JOHNSON MR Final Res ult * Outside MR Imaging Report Only (04/08/2025 3:59 PM EDT) Historical Provider MD JOHNSON MR Final Res ult * HM DIABETES EYE EXAM FOR RESULT ENTRY ONLY (03/11/2025 2:28 PM EDT) Historical Provider HEALTH MAINTENANCE Final Result * (ABNORMAL) Comprehensive metabolic panel (10/31/2024 9:23 AM EDT) SODIUM 143 133 - 146 mmol/L [facility] POTASSIUM 4.2 3.3 - 5.1 mmol/L [facility] CHLORIDE 107 96 - 108 mmol/L [facility] CO2 25 21 - 35 mmol/L [facility] BUN 18 6 - 19 mg/dL [facility] CREATININE 0.70 0.5 - 1.5 mg/dL [facility] GLUCOSE 211(H) 70 - 99 mg/dL [facility] ALBUMIN 4.3 3.9 - 4.8 g/dL [facility] TOTAL PROTEIN 6.6 6.5 - 8.0 g/dL [facility] CALCIUM 9.3 8.4 - 10.3 mg/dL [facility] ALKALINE PHOSPHATASE 89 39 - 117 U/L [facility] TOTAL BILIRUBIN 0.4 0.0 - 1.2 mg/dL [facility] AST 17 0 - 37 U/L [facility] ALT 18 0 - 40 U/L [facility] GLOBULIN 2.3 1 - 4.8 g/dL [facility] EGFR 92 >59 mL/min/1.7 3m2 [facility] Comment:Estimated glomerular filtration rate calculated using the CKD-EPI refit equation. ANION GAP 15 10 - 20 mmol/L [facility] Blood 10/31/2024 9:23 AM EDT 10/31/2024 9:26 AM EDT Jeovanny Saenz MD LAB BLOOD ORDERABLES Final Re sult Performing Organization Address City/[facility]/ZIP Co de Phone Number [address] [address] * (ABNORMAL) Hemoglobin A1c (10/31/2024 9:23 AM EDT) Pathologist [facility] HEMOGLOBIN A1C 8.5(H) 4.3 - 5.8 % [facility] Blood 10/31/2024 9:23 AM EDT 10/31/2024 9:26 AM EDT Jeovanny Saenz MD LAB BLOOD ORDERABLES Final Re sult Performing Organization Address [facility] Co de Phone Number [address] [address] * COLONOSCOPY FOR RESULT ENTRY ONLY (12/13/2016) Pathologist [facility] Colonoscopy path done report requested Historical Provider HEALTH MAINTENANCE Final Result * MAMMOGRAPHY FOR RESULT ENTRY ONLY (07/08/2016) Pathologist [facility] Mammogram Birads 1 Negative Historical Provider HEALTH MAINTENANCE Final Result from Last 3 Months or Most Recently Relevant to Health Maintenance Insurance MEDICARE PART A & B [facility] MEDICARE POS PPO REPLACEMENT MEDICARE PART A [...] Truong Payer ID:Not on file Type:Medicare Address: [place] [id number] Care Teams Assistant Accounting Manager Relationship Specialty Start Date End Date Jeovanny Saenz MD [address] [place] [address] [email or web address] PCP - General Internal Medicine 03/08/23 Additional Source Comments The information contained in this document represents components of the legal health record. It is not the complete legal health record.[facility]
--- OUTSIDE RECORDS SUMMARY | 2025-05-03 14:37 | XMS_ITS | Encounter Summary ---
Author Organization [facility] Address [address] [place] [address] Phone Care Team Providers Care Farmer Vegetable Name Role Phone Jeovanny Saenz MD Primary Care Provider [phone] Encounter Details Date Type Department Care Team (Late st Contact Info) Description 07/11/2024 Procedure Pass [facility], [address] [address] Social History Tobacco Use Types Packs/Day Years [...] Description 05/14/2025 11:00 AM EST Office Visit [facility] [address] [place] [address] Rhianna Kee CNP 22 [facility], 1st [place] [address] [email or web address] 05/24/2025 11:00 AM EST Office Visit [facility] Internal Medicine [address] [place] [address] Jeovanny Saenz MD [address] [place] [address] [email or web address] documented as of this encounter Visit Diagnoses Not on filedocumented in this encounter Additional Health Concerns Assessment Noted Time PHQ-2 Depression Total Score: 0 04/24/20 24 10:48 AM EDT documented as of this encounter Care Teams Farmer Vegetable Relationship Specialty Start Date End Date Jeovanny Saenz MD [address] [place] [address] [email or web address] PCP - General Internal Medicine 03/08/23 documented as of this encounter Additional Source Comments The information contained in this document represents components of the legal health record. It is not the complete legal health record.[facility]
--- OUTSIDE RECORDS SUMMARY | 2025-05-03 14:38 | XMS_ITS | Encounter Summary ---
Author Organization [facility] Address [address] [place] [address] Phone Care Team Providers Care Bail Attacher Name Role Phone Jeovanny Saenz MD Primary Care Provider [phone] Encounter Details Date Type Department Care Team (Latest Contact Info) Description 06/28/2024 Ancillary Orders [facility] Internal [facility] [address] [place], [place] [phone] [place] Frederick PA-C [address] [place], [place] [id number] [email or web address] Lumbar radiculopathy (Primary Dx) Social History [...] Description 05/14/2025 11:00 AM EST Office Visit [facility] [address] [place] [address] Rhianna Kee, GEOSPATIAL PROGRAM MANAGEMENT OFFICER 22 [facility], 1st [place] [address] [email or web address] 05/24/2025 11:00 AM EST Office Visit [facility] Internal [facility] [address] [place] [address] Jeovanny Saenz MD [address] [place] [address] [email or web address] documented as of this encounter Results * [...] documented as of this encounter Care Teams Bail Attacher Relationship Specialty Start Date End Date Jeovanny Saenz MD [address] [place] [phone] [email or web address] PCP - General Internal Medicine 03/08/23 documented as of this encounter Additional Source Comments The information contained in this document represents components of the legal health record. It is not the complete legal health record.[facility]
== END 2025-05-03 15:02 | disposition home or self-care (01) ==
LOC: HO.HNS 13:41
PROVIDERS: PCP Internal Medicine; Visit Provider Neurological Surgery
DX: M48.062 Spinal stenosis, lumbar region with neurogenic claudication (principal)
CPT/HCPCS: 99213

== ENCOUNTER → 2025-05-03 13:41 | Outpatient (BNVA) | payer MEDICARE, SELFPAY | PROVIDERS: PCP Internal Medicine; Visit Provider Neurological Surgery | DX: M48.062 Spinal stenosis, lumbar region with neurogenic claudication (principal) | CPT/HCPCS: 99212 ==